=== PATIENT | male | born 1930 | race Caucasian/White ===

== ENCOUNTER 2017-01-05 16:10 | Emergency (ER) | payer MEDICARE ==
[~2017-01-05] VITALS: Ht 180.3 cm; Wt 85.7 kg
--- OUTSIDE RECORDS SUMMARY | ~2017-01-05 | XMS ---
Demographics + + + | Address | [address] | | | [place] [address] | + + + | Preferred Language | Unknown | + + + | Marital Status | Unknown | + + + | Jewish Affiliation | Unknown | + + + | Race | Unknown | + + + | Ethnic Group | Unknown | + + + Author + + + | Author | [facility] | + + + | Organization | [facility] | + + + | Address | 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 | 455007957 | | | cancer | | | | | | +---------+ + + +--------+ + + | Problem | HTN | | I10 | | Active | 85686365 | | | (hypertens | | | | | | | | ion) | | | | | | +---------+ + + +--------+ + + | Problem | Elevated | R73.01 | | | Active | 889990670 | | | fasting | | | | | | | | blood | | | | | | | | sugar | | | | | | +---------+ + + +--------+ + + | Problem | BPH | | N40.0 | | Active | 094843361 | | | (benign | | | | | | | | prostatic | | | | | | | | hyperplasi | | | | | | | | a) | | | | | | +---------+ + + +--------+ + + | Problem | Glaucoma | 365.9 | | | Active | 43822303 | +---------+ + + +--------+ + + | Problem | GERD | 530.81 | | | Active | 116133427 | | | (gastroeso | | | | | | | | phageal | | | | | | | | reflux | | | | | | | | disease) | | | | | | +---------+ + + +--------+ + + | Problem | Low | E55.9 | | | Active | 04839884 | | | vitamin D | | | | | | | | level | | | | | | +---------+ + + +--------+ + + | Problem | Chronic | | N18.3 | | Active | 259288796 | | | kidney | | | | | | | | disease, | | | | | | | | stage 3 | | | | | | +---------+ + + +--------+ + + | Problem | Esophagiti | K20.9 | | | Active | 75288649 | | | s | | | | | | +---------+ + + +--------+ + + | 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 | | | | | | | | | | | | | | | | ulceration | | | | | | +---------+ + + +--------+ + + | Problem | Chews | Z72.0 | | | Active | 61992303 | | | tobacco | | | | | | +---------+ + + +--------+ + + | Problem | Encounter | | Z13.89 | | Active | 146949019 | | | for | | | | | | | | screening | | | | | | | | for other | | | | | | | | disorder | | | | | | +---------+ + + +--------+ + + ALLERGIES Unknown Allergies SOCIAL HISTORY No smoking Hx information available PLAN OF CARE VITAL SIGNS MEDICATIONS Unknown Medications RESULTS No Results PROCEDURES No Known procedures IMMUNIZATIONS No Known Immunizations"
--- OUTSIDE RECORDS SUMMARY | ~2017-01-05 | XMS ---
Demographics + + + | Address | [address] | | | [place] [address] | + + + | Preferred Language | Unknown | + + + | Marital Status | Unknown | + + + | Pentecostal Affiliation | Unknown | + + + | Race | Unknown | + + + | Ethnic Group | Unknown | + + + Author + + + | Author | [facility] | + + + | Organization | [facility] | + + + | Address | [address] | | | [place] [address] | + + + | Phone | | + + + Care Team Providers + + + + | Care Parliamentary Archivist Name | Role | Phone | + + + + Unavailable | Unavailable | + + + + PROBLEMS +---------+ + + +--------+ + + | Type | Condition | ICD9-CM | [id number] | Onset | Condition | SNOMED | | | | Code | Code | Dates | Status | Code | +---------+ + + +--------+ + + | Problem | Hypertensi | 401.9 | | | Active | 28411107 | | | on | | | | | | +---------+ + + +--------+ + + | Problem | Skin | C44.90 | | | Active | 117425855 | | | cancer | | | | | | +---------+ + + +--------+ + + | Problem | HTN | | I10 | | Active | 34114881 | | | (hypertens | | | | | | | | ion) | | | | | | +---------+ + + +--------+ + + | Problem | Elevated | R73.01 | | | Active | 409012017 | | | fasting | | | | | | | | blood | | | | | | | | sugar | | | | | | +---------+ + + +--------+ + + | Problem | BPH | | N40.0 | | Active | 845996989 | | | (benign | | | | | | | | prostatic | | | | | | | | hyperplasi | | | | | | | | a) | | | | | | +---------+ + + +--------+ + + | Problem | Glaucoma | 365.9 | | | Active | 70819696 | +---------+ + + +--------+ + + | Problem | GERD | 530.81 | | | Active | 992375460 | | | (gastroeso | | | | | | | | phageal | | | | | | | | reflux | | | | | | | | disease) | | | | | | +---------+ + + +--------+ + + | Problem | Low | E55.9 | | | Active | 56284915 | | | vitamin D | | | | | | | | level | | | | | | +---------+ + + +--------+ + + | Problem | Chronic | | N18.3 | | Active | 670977719 | | | kidney | | | | | | | | disease, | | | | | | | | stage 3 | | | | | | +---------+ + + +--------+ + + | Problem | Esophagiti | K20.9 | | | Active | 23335599 | | | s | | | | | | +---------+ + + +--------+ + + | 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
--- OUTSIDE RECORDS SUMMARY | ~2017-01-05 | XMS ---
Demographics + + + | Address | [address] | | | [place] [address] | + + + | Preferred Language | Unknown | + + + | Marital Status | Unknown | + + + | Latter-Day Affiliation | Unknown | + + + | Race | Unknown | + + + | Ethnic Group | Unknown | + + + Author + + + | Author | [facility] | + + + | Organization | [facility] | + + + | Address | [address] | | | [place] [address] | + + + | Phone | | + + + Care Team Providers + + + + | Care Water Quality Technician Name | Role | Phone | + + + + Unavailable | Unavailable | + + + + PROBLEMS + + + + + + + + | Type | Condition | ICD9-CM | [id number] | Onset | Condition | SNOMED | | | | Code | Code | Dates | Status | Code | + + + + + + + + | Problem | Hypertensi | 401.9 | | | Active | 21363887 | | | on | | | | | | + + + + + + + + | Problem | Skin | C44.90 | | | Active | 122220916 | | | cancer | | | | | | + + + + + + + + | Problem | HTN | | I10 | | Active | 49501242 | | | (hypertens | | | | | | | | ion) | | | | | | + + + + + + + + | Problem | Low | E55.9 | | | Active | 97969123 | | | vitamin D | | | | | | | | level | | | | | | + + + + + + + + | Problem | Chronic | | N18.3 | | Active | 723214566 | | | kidney | | | | | | | | disease, | | | | | | | | stage 3 | | | | | | + + + + + + + + | Problem | Esophagiti | K20.9 | | | Active | 12843011 | | | s | | | | | | + + + + + + + + | 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 | | | Active | 18372887 | | | esophageal | | | | | | | | | | | | | | | | ulceration | | | | | | + + + + + + + + | Problem | Chews | Z72.0 | | | Active | 23154544 | | | tobacco | | | | | | + + + + + + + + | Problem | Encounter | | Z13.89 | | Active | 982399095 | | | for | | | | | | | | screening | | | | | | | | for other | | | | | | | | disorder | | | | | | + + + + + + + + | Problem | Elevated | R73.01 | | | Active | 876749107 | | | fasting | | | | | | | | blood | | | | | | | | sugar | | | | | | + + + + + + + + | Problem | BPH | | N40.0 | | Active | 211156272 | | | (benign | | | | | | | | prostatic | | | | | | | | hyperplasi | | | | | | | | a) | | | | | | + + + + + + + + | Assessment | Elevated | R73.9 | | 20 Apr, | Active | 88575104 | | | blood | | | 2017 | | | | | sugar | | | | | | + + + + + + + + | Problem | Glaucoma | 365.9 | | | Active | 45491375 | + + + + + + + + | Assessment | Low | E55.9 | | 20 Apr, | Active | 03040886 | | | vitamin D | | | 2017 | | | | | level | | | | | | + + + + + + + + | Problem | GERD | 530.81 | | | Active | 969528605 | | | (gastroeso | | | | | | | | phageal | | | | | | | | reflux | | | | | | | | disease) | | | | | | + + + + + + + + ALLERGIES + + + + +--------+ | Substance | Reaction | Event Type | Date | Status | + + + + +--------+ | Terazosin HCl | stomach upset | Drug Allergy | Jun, | Active | + + + + +--------+ | Tamsulosin HCl | stomach upset | Drug Allergy | Jun, | Active | + + + + +--------+ | Flomax | stomach upset | Drug Allergy | Jun, | Active | + + + + +--------+ SOCIAL HISTORY No smoking Hx information available PLAN OF CARE + +---------+ | Activity | Details | + +---------+ +---+ | | +---+ + + + | Pending Test | Renal Ultrasound | + + + | | 2 Months,Reason: | + + + VITAL SIGNS + + + + | Height | 5 ft 11.5 in in | 2016-07-02 | + + + + | Weight | 195 lbs | 2016-07-02 | + + + + | BMI | 26.82 kg/m2 | 2016-07-02 | + + + + | Temperature | 97.8 degrees Fahrenheit | 2016-07-02 | + + + + | Heart Rate | 65 /min | 2016-07-02 | + + + + | Blood pressure systolic | 135 mm Hg | 2016-07-02 | + + + + | Blood pressure diastolic | 80 mm Hg | 2016-07-02 | + + + + MEDICATIONS + + + + +--------+ + +--------+ | Medicati | Instruct | Dosage | Frequenc | Start | End Date | Duration | Status | | on | ions | | y | Date | | | | + + + + +--------+ + +--------+ | Hydrochl | | TAKE 1 | | | | | Active | | orothiaz | | TABLET | | | | | | | graciela 25MG | | EVERY 24 | | | | | | | | | HOURS | | | | | | | | | | | | | | | | | | DIRECTED | | | | | | + + + + +--------+ + +--------+ | Aspirin | Orally | 1 tablet | 24h | | | | Active | | 81 MG | Once a | | | | | | | | | day | | | | | | | + + + + +--------+ + +--------+ | Amlodipi | Orally | 2 tablet | 24h | | | | Active | | ne | Once a | | | | | | | | Besylate | day | | | | | | | | 5 MG | | | | | | | | + + + + +--------+ + +--------+ | Latanopr | | 1 drop | | | | | Active | | ost | | into | | | | | | | 0.005 % | | each eye | | | | | | + + + + +--------+ + +--------+ | Losartan | | 1 TABLET | | | | | Active | | | | ONCE A | | | | | | | Potassiu | | DAY | | | | | | | m 50 MG | | ORALLY | | | | | | | | | 30 | | | | | | | | | DAY(S) | | | | | | + + + + +--------+ + +--------+ | Tylenol | Orally | 2 tablet | | | | | Active | | Extra | night | as | | | | | | | Strength | time | needed | | | | | | | 500 MG | | | | | | | | + + + + +--------+ + +--------+ | Timolol | Ophthalm | 1 drop | 24h | | | | Active | | Hemihydr | ic Once | into | | | | | | | ate 0.5 | a day | affected | | | | | | | % | | eye | | | | | | + + + + +--------+ + +--------+ | Vitamin | Orally | | 24h | | | | Active | | D2 [id number] | Once a | | | | | | | | | day | | | | | | | + + + + +--------+ + +--------+ RESULTS No Results PROCEDURES + + + + + | Procedure | Date Ordered | Related Diagnosis | Body Site | + + + + + | Est Level III | July 02, 2016 | | | | Intermediate | | | | + + + + + | [facility] MED/CURRENT | July 02, 2016 | | | | MED MERGE | | | | + + + + + IMMUNIZATIONS No Known Immunizations"
--- OUTSIDE RECORDS SUMMARY | ~2017-01-05 | XMS ---
Demographics + + + | Address | [address] | | | [place] [address] | + + + | Preferred Language | Unknown | + + + | Marital Status | Unknown | + + + | Yarsanism Affiliation | Unknown | + + + | Race | Unknown | + + + | Ethnic Group | Unknown | + + + Author + + + | Author | [facility] | + + + | Organization | [facility] | + + + | Address | [address] | | | [place] [address] | + + + | Phone | | + + + Care Team Providers + + + + | Care Director Of Exhibits Name | Role | Phone | + + + + Unavailable | Unavailable | + + + + PROBLEMS +---------+ + + +--------+ + + | Type | Condition | ICD9-CM | [id number] | Onset | Condition | SNOMED | | | | Code | Code | Dates | Status | Code | +---------+ + + +--------+ + + | Problem | Hypertensi | 401.9 | | | Active | 95781160 | | | on | | | | | | +---------+ + + +--------+ + + | Problem | Skin | C44.90 | | | Active | 705734062 | | | cancer | | | | | | +---------+ + + +--------+ + + | Problem | HTN | | I10 | | Active | 46048014 | | | (hypertens | | | | | | | | ion) | | | | | | +---------+ + + +--------+ + + | Problem | Elevated | R73.01 | | | Active | 285218794 | | | fasting | | | | | | | | blood | | | | | | | | sugar | | | | | | +---------+ + + +--------+ + + | Problem | BPH | | N40.0 | | Active | 367547223 | | | (benign | | | | | | | | prostatic | | | | | | | | hyperplasi | | | | | | | | a) | | | | | | +---------+ + + +--------+ + + | Problem | Glaucoma | 365.9 | | | Active | 26066305 | +---------+ + + +--------+ + + | Problem | GERD | 530.81 | | | Active | 404406595 | | | (gastroeso | | | | | | | | phageal | | | | | | | | reflux | | | | | | | | disease) | | | | | | +---------+ + + +--------+ + + | Problem | Low | E55.9 | | | Active | 11841727 | | | vitamin D | | | | | | | | level | | | | | | +---------+ + + +--------+ + + | Problem | Chronic | | N18.3 | | Active | 776130043 | | | kidney | | | | | | | | disease, | | | | | | | | stage 3 | | | | | | +---------+ + + +--------+ + + | Problem | Esophagiti | K20.9 | | | Active | 88473771 | | | s | | | | | | +---------+ + + +--------+ + + | 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
--- OUTSIDE RECORDS SUMMARY | ~2017-01-05 | XMS ---
Demographics + + + | Address | [address] | | | [place] [address] | + + + | Preferred Language | Unknown | + + + | Marital Status | Unknown | + + + | Mormon Affiliation | Unknown | + + + | Race | Unknown | + + + | Ethnic Group | Unknown | + + + Author + + + | Author | [facility] | + + + | Organization | [facility] | + + + | Address | [address] | | | [place] [address] | + + + | Phone | | + + + Care Team Providers + + + + | Care Mobility Manager Name | Role | Phone | + + + + Unavailable | Unavailable | + + + + PROBLEMS +---------+ + + +--------+ + + | Type | Condition | ICD9-CM | [id number] | Onset | Condition | SNOMED | | | | Code | Code | Dates | Status | Code | +---------+ + + +--------+ + + | Problem | Hypertensi | 401.9 | | | Active | 39612070 | | | on | | | | | | +---------+ + + +--------+ + + | Problem | Skin | C44.90 | | | Active | 949840167 | | | cancer | | | | | | +---------+ + + +--------+ + + | Problem | HTN | | I10 | | Active | 62741921 | | | (hypertens | | | | | | | | ion) | | | | | | +---------+ + + +--------+ + + | Problem | Elevated | R73.01 | | | Active | 952030852 | | | fasting | | | | | | | | blood | | | | | | | | sugar | | | | | | +---------+ + + +--------+ + + | Problem | BPH | | N40.0 | | Active | 827604044 | | | (benign | | | | | | | | prostatic | | | | | | | | hyperplasi | | | | | | | | a) | | | | | | +---------+ + + +--------+ + + | Problem | Glaucoma | 365.9 | | | Active | 11823264 | +---------+ + + +--------+ + + | Problem | GERD | 530.81 | | | Active | 109832890 | | | (gastroeso | | | | | | | | phageal | | | | | | | | reflux | | | | | | | | disease) | | | | | | +---------+ + + +--------+ + + | Problem | Low | E55.9 | | | Active | 06778577 | | | vitamin D | | | | | | | | level | | | | | | +---------+ + + +--------+ + + | Problem | Chronic | | N18.3 | | Active | 619413914 | | | kidney | | | | | | | | disease, | | | | | | | | stage 3 | | | | | | +---------+ + + +--------+ + + | Problem | Esophagiti | K20.9 | | | Active | 63615140 | | | s | | | | | | +---------+ + + +--------+ + + | 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 | | | Active | 42297801 | | | esophageal | | | | | | | | | | | | | | | | ulceration | | | | | | +---------+ + + +--------+ + + | Problem | Chews | Z72.0 | | | Active | 52583772 | | | tobacco | | | | | | +---------+ + + +--------+ + + | Problem | Encounter | | Z13.89 | | Active | 109735115 | | | for | | | | | | | | screening | | | | | | | | for other | | | | | | | | disorder | | | | | | +---------+ + + +--------+ + + ALLERGIES + + + + +--------+ | Substance | Reaction | Event Type | Date | Status | + + + + +--------+ | Terazosin HCl | stomach upset | Drug Allergy | Sep, | Active | + + + + +--------+ | Tamsulosin HCl | stomach upset | Drug Allergy | Sep, | Active | + + + + +--------+ | Flomax | stomach upset | Drug Allergy | Sep, | Active | + + + + +--------+ SOCIAL HISTORY No smoking Hx information available PLAN OF CARE + +---------+ | Activity | Details | + +---------+ +---+ | | +---+ + + + | Follow Up | 2 Months Reason:null | + + + VITAL SIGNS + + + + | Height | 5 ft 11.5 in in | 2016-10-01 | + + + + | Weight | 184.2 lbs | 2016-10-01 | + + + + | BMI | 25.33 kg/m2 | 2016-10-01 | + + + + | Temperature | 97.8 degrees Fahrenheit | 2016-10-01 | + + + + | Heart Rate | 61 /min | 2016-10-01 | + + + + | Blood pressure systolic | 142 mm Hg | 2016-10-01 | + + + + | Blood pressure diastolic | 76 mm Hg | 2016-10-01 | + + + + MEDICATIONS + [...] + + + +--------+ + +--------+ | Protonix | Orally | 1 | 24h | | | | Active | | 20 MG | Once a | tablets | | | | | | | [...] | | | Active | | D2 30274 | Once a | | | | | | | | | day | | | | | | | + + + + +--------+ + +--------+ RESULTS + +--------+ + + | Name | Result | Date | Reference Range | + +--------+ + + | Basic Metabolic | | 2016-10-01 | | | Panel (8) | | | | + +--------+ + + | Calcium, Serum | | | | + +--------+ + + | Glucose, Serum | | | | + +--------+ + + | BUN | | | | + +--------+ + + | Potassium, Serum | | | | + +--------+ + + | Sodium, Serum | | | | + +--------+ + + | Chloride, Serum | | | | + +--------+ + + | Creatinine, Serum | | | | + +--------+ + + | Carbon Dioxide, | | | | | Total | | | | + +--------+ + + | BUN/Creatinine | | | | | Ratio | | | | + +--------+ + + | Hepatitis C | | 2016-10-01 | | | antibody | | | | + +--------+ + + | Vitamin D 25-OH | | 2016-10-01 | | + +--------+ + + | VITAMIN D 25-OH | | | | + +--------+ + + | CBC with | | 2016-10-01 | | | Differential Count | | | | + +--------+ + + PROCEDURES + + + + + | Procedure | Date Ordered | Related Diagnosis | Body Site | + + + + + | Office Visit, Est | October 01, 2016 | | | | Pt., Level 3 | | | | + + + + + | [facility] MED/CURRENT | October 01, 2016 | | | | MED MERGE | | | | + + + + + IMMUNIZATIONS No Known Immunizations"
--- OUTSIDE RECORDS SUMMARY | ~2017-01-05 | XMS ---
Demographics + + + | Address | [address] | | | [place] [address] | + + + | Preferred Language | Unknown | + + + | Marital Status | Unknown | + + + | Sikhism Affiliation | Unknown | + + + | Race | Unknown | + + + | Ethnic Group | Unknown | + + + Author + + + | Author | [facility] | + + + | Organization | [facility] | + + + | Address | [address] | | | [place] [address] | + + + | Phone | | + + + Care Team Providers + + + + | Care Chief Commercial Officer Name | Role | Phone | + + + + Unavailable | Unavailable | + + + + PROBLEMS +---------+ + + +--------+ + + | Type | Condition | ICD9-CM | [id number] | Onset | Condition | SNOMED | | | | Code | Code | Dates | Status | Code | +---------+ + + +--------+ + + | Problem | Hypertensi | 401.9 | | | Active | 18862938 | | | on | | | | | | +---------+ + + +--------+ + + | Problem | Skin | C44.90 | | | Active | 462889898 | | | cancer | | | | | | +---------+ + + +--------+ + + | Problem | HTN | | I10 | | Active | 67582996 | | | (hypertens | | | | | | | | ion) | | | | | | +---------+ + + +--------+ + + | Problem | Elevated | R73.01 | | | Active | 926863136 | | | fasting | | | | | | | | blood | | | | | | | | sugar | | | | | | +---------+ + + +--------+ + + | Problem | BPH | | N40.0 | | Active | 955981555 | | | (benign | | | | | | | | prostatic | | | | | | | | hyperplasi | | | | | | | | a) | | | | | | +---------+ + + +--------+ + + | Problem | Glaucoma | 365.9 | | | Active | 16696044 | +---------+ + + +--------+ + + | Problem | GERD | 530.81 | | | Active | 116930975 | | | (gastroeso | | | | | | | | phageal | | | | | | | | reflux | | | | | | | | disease) | | | | | | +---------+ + + +--------+ + + | Problem | Low | E55.9 | | | Active | 03223148 | | | vitamin D | | | | | | | | level | | | | | | +---------+ + + +--------+ + + | Problem | Chronic | | N18.3 | | Active | 524797911 | | | kidney | | | | | | | | disease, | | | | | | | | stage 3 | | | | | | +---------+ + + +--------+ + + | Problem | Esophagiti | K20.9 | | | Active | 56363571 | | | s | | | | | | +---------+ + + +--------+ + + | 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
[~2017-01-05 16:10] MED LIST: ACID CONTROL150 MG PO; ADULT LOW DOSE81 MG PO; CENTRUM COMPLE1 EACH PO; HYDROCHLOROTHIA25 MG PO; NORVASC5 MG PO; POTASSIUM CHLO10 MEQ PO; PROMETHAZINE-COD5 ML PO
[2017-01-05] MEDS ORDERED: COZAAR25 MG PO (16:27)
[2017-01-05] MEDS ORDERED: METHYLPREDNISOLO4 M1 PO (16:52)
== END 2017-01-05 16:58 | disposition home or self-care (01) ==
LOC: ED 16:10
DX: M26.621 Arthralgia of right temporomandibular joint (principal); I10 Essential (primary) hypertension; Z87.891 Personal history of nicotine dependence; Z88.1 Allergy status to other antibiotic agents; Z79.82 Long term (current) use of aspirin; Z79.899 Other long term (current) drug therapy
CPT/HCPCS: 99283

== ENCOUNTER 2017-12-06 10:52 | Emergency (ER) | payer MEDICARE ==
[~2017-12-06] VITALS: Ht 180.3 cm; Wt 85.7 kg
--- OUTSIDE RECORDS SUMMARY | ~2017-12-06 | XMS | Clinical Summary ---
Demographics + + + | Address | [address] [facility] | | | [place] [address] | + + + | Home Phone | | + + + | Preferred Language | Unknown | + + + | Marital Status | | + + + | Anglican Affiliation | 1069 | + + + | Race | Unknown | + + + | Ethnic Group | Unknown | + + + Author + + + | Author | [facility] | + + + | Organization | [facility] | + + + | Address | Unknown | + + + | Phone | Unavailable | + + + Support + + + + + | Name | Relationship | Address | Phone | + + + + + | Montse Jain | ECON | [address] [facility] | | | | | [place] | | | | | [address] | | + + + + + Care Team Providers + +------+ + | Care Polysomnography Tech Name | Role | Phone | + [...] + + + Current Medications + + +-------+---------+------+------+-------+ | Prescription | Sig. | Disp. | Refills | Star | End | Statu | | | | | | t | Date | s | | | | | | Date | | | + + +-------+---------+------+------+-------+ | aspirin 81 MG | Take 81 mg by mouth | | | | | Activ | | tablet | daily. 1/4 of 81 MG | | | | | e | | | tablet daily | | | | | | + + +-------+---------+------+------+-------+ | amLODIPine | Take 10 mg by mouth | | | | | Activ | | (NORVASC) 5 MG | daily. | | | | | e | | tablet | | | | | | | + + +-------+---------+------+------+-------+ | timolol (TIMOPTIC) | 1 drop daily. | | | | | Activ | | 0.5 % ophthalmic | | | | | | e | | solution | | | | | | | + + +-------+---------+------+------+-------+ | losartan (COZAAR) | Take 50 mg by mouth | | | | | Activ | | 50 MG tablet | daily. | | | | | e | + + +-------+---------+------+------+-------+ | | Take 25 mg by mouth | | | | | Activ | | hydrochlorothiazide | daily. | | | | | e | | (HYDRODIURIL) 25 MG | | | | | | | | tablet | | | | | | | + + +-------+---------+------+------+-------+ | acetaminophen | Take 500 mg by mouth | | | | | Activ | | (TYLENOL) 500 MG | nightly as needed | | | | | e | | tablet | for Pain. | | | | | | + + +-------+---------+------+------+-------+ | ergocalciferol | Take 50,000 Units by | | | | | Activ | | (DRISDOL) [address]79 | mouth daily. | | | | | e | | units capsule | | | | | | | + + +-------+---------+------+------+-------+ | pantoprazole | Take 20 mg by mouth | | | | | Activ | | (PROTONIX) 20 MG | daily. D/C's over a | | | | | e | | tablet | year ago. | | | | | | + + +-------+---------+------+------+-------+ | Multiple | Take 1 tablet by | | | | | Activ | | Vitamins-Minerals | mouth daily. | | | | | e | | (MULTIVITAMIN WITH | | | | | | | | MINERALS) tablet | | | | | | | + + +-------+---------+------+------+-------+ | ranitidine | 150 mg as needed. | | | 09/13 | | Activ | | (ZANTAC) 150 MG | | | | 04/03 | | e | | capsule | | | | 17 | | | + + +-------+---------+------+------+-------+ | latanoprost | | | | 03 | | Activ | | (XALATAN) 0.005 % | | | | 09/01 | | e | | ophthalmic solution | | | | 18 | | | + + +-------+---------+------+------+-------+ Active Problems + + + | Problem [...] | symptoms | | + + + Encounters +--------+ + + + + | Date | Type | Specialty | Care Team | Description | +--------+ + + + + | 12/02/ | Telephone | | Josefa Torres MA | | | 2017 | | | | | +--------+ + + + + from Last 3 Months Family History + + +------+ + | [...] + + + | Blood Pressure | 134/72 | 06/16/2017 9:58 AM PDT | + + + + | Pulse | 75 | 06/16/2017 9:58 AM PDT | + + + + | Temperature | 36.4 C (97.5 F) | 06/16/2017 9:58 AM PDT | + + + + | Respiratory Rate | - | - | + + + + | Oxygen Saturation | 97% | 06/16/2017 9:58 AM PDT | + + + + | Inhaled Oxygen | - | - | | Concentration | | | + + + + | Weight | 88.6 kg (195 lb 4.8 | 06/16/2017 9:58 AM PDT | | | oz) | | + + + + | Height | 180.3 cm (5' 11") | 06/16/2017 2:40 PM PDT | + + + + | Body Mass Index | 36.9 | 06/16/2017 9:58 AM PDT | + + + + Plan of Treatment +--------+---------+ + + + | Date | Type | Specialty | Care Team | Description | +--------+---------+ + + + | 12/10/ | Office | | Tato Urrutia, | | | 2017 | Visit | | [facility] | | | | | | [address] | | | | | | [place] [address] | | | | | | [phone] | | | | | | | | +--------+---------+ + + + + + + + + | Health [...] | | | | | (#1) | 8 | | | + + + + [...] +--------+ +--------+ + + | [place] - | [phone] | Medica | [phone] | [address] [address] [place] | | HEALTHCARE | [place] | | re | [phone] | [place] [address] | | | | | | | [...] | Self | [birth year] | Home: | [address] | | | al/Fam | | 1931 | [phone] | [place] | | | [place] | | | [phone] | [phone] | + +--------+ +--------+ + +
--- OUTSIDE RECORDS SUMMARY | ~2017-12-06 | XMS | Encounter Summary ---
Demographics + + + | Address | [address] [facility] [address] | | | [place] [address] | + + + | Home Phone | | + + + | Preferred Language | Unknown | + + + | Marital Status | | + + + | Alevism Affiliation | 1069 | + + + | Race | Unknown | + + + | Ethnic Group | Unknown | + + + Author + + + | Author | [facility] | + + + | Organization | [facility] | + + + | Address | Unknown | + + + | Phone | Unavailable | + + + Support + + + + + | Name | Relationship | Address | Phone | + + + + + | Montse Jain | ECON | [address] [facility] | | | | | [place] | | | | | [address] | | + + + + + Care Team Providers + +------+ + | Care Administrative Receptionist Name | Role | Phone | + +------+ + | Kwabena Dimas MD | PCP | | + +------+ + Encounter Details +--------+ + + + + | Date | Type | Department | Care Team | Description | +--------+ + + + + | 12/02/ | Telephone | [facility] | Josefa Torres [place] | | | 2017 | | [address] | | | | | | [address] | | | | | | [place] [address] | | | | | | [phone] | | | +--------+ + + + + Social History + +-------+ +--------+ [...] on file | | + + + as of this encounter Plan of Treatment +--------+---------+ + + + | Date | Type | Specialty | Care Team | Description | +--------+---------+ + + + | 12/10/ | Office | Nephrology | Tato Urrutia, | | | 2017 | Visit | | [facility] | | | | | | [address] | | | | | | [place] [address] | | | | | | [phone] | | | | | | | | +--------+---------+ + + + as of this encounter Visit Diagnoses Not on filein this encounter"
--- OUTSIDE RECORDS SUMMARY | ~2017-12-06 | XMS | Clinical Summary ---
Demographics + + + | Address | [address] [facility] | | | [place] [address] | + + + | Home Phone | | + + + | Preferred Language | Unknown | + + + | Marital Status | | + + + | Hinduism Affiliation | 1069 | + + + | Race | Unknown | + + + | Ethnic Group | Unknown | + + + Author + + + | Author | [facility] | + + + | Organization | [facility] | + + + | Address | Unknown | + + + | Phone | Unavailable | + + + Support + + + + + | Name | Relationship | Address | Phone | + + + + + | Montse Jain | ECON | [address] [facility] | | | | | [place] | | | | | [address] | | + + + + + Care Team Providers + +------+ + | Care Industrial Specialist Name | Role | Phone | + [...] | | | Activ | | (DRISDOL) [address] | mouth daily. | | | | [...] [address] | | | | | | [place] [address] | | | | | | [phone] | | | | | | | [...] [place] | [place] - | [phone] | Medica | [phone] | [address] [address] [place] | | HEALTHCARE | [place] | | re | [address] | [place] [address] | | | | | | | [...] | Self | [birth year] | Home: | [address] | | | al/Fam | | 1931 | [phone] | [place] | | | [place] | | | [phone] | [phone] | + +--------+ +--------+ + +
--- OUTSIDE RECORDS SUMMARY | ~2017-12-06 | XMS | Encounter Summary ---
Demographics + + + | Address | [address] [facility] | | | [place] [address] | + + + | Home Phone | | + + + | Preferred Language | Unknown | + + + | Marital Status | | + + + | Hindu Affiliation | 1069 | + + + | Race | Unknown | + + + | Ethnic Group | Unknown | + + + Author + + + | Author | [facility] | + + + | Organization | [facility] | + + + | Address | Unknown | + + + | Phone | Unavailable | + + + Support + + + + + | Name | Relationship | Address | Phone | + + + + + | Montse Jain | ECON | [address] [facility] | | | | | [place] | | | | | [address] | | + + + + + Care Team Providers + +------+ + | Care Instrument Sterilizer Name | Role | Phone | + +------+ + | Kwabena Dimas MD | PCP | | + +------+ + Encounter Details +--------+ + + + + | Date | Type | Department | Care Team | Description | +--------+ + + + + | 12/02/ | Telephone | [facility] | Josefa Torres MA | | | 2017 | | [address] | | | | | | [address] | | | | | | [place] [address] | | | | | | [phone] | | | +--------+ + + + [...] [address] | | | | | | [place] [address] | | | | | | [phone] | | | | | | | | +--------+---------+ + + + as of this encounter Visit Diagnoses Not on filein this encounter"
[~2017-12-06 10:52] MED LIST changes: +COZAAR25 MG PO; +METHYLPREDNISOLO4 M1 PO
== END 2017-12-06 12:50 | disposition home or self-care (01) ==
LOC: ED 10:52
DX: S69.91XA Unspecified injury of right wrist, hand and finger(s), initial encounter (principal); I10 Essential (primary) hypertension; Z87.891 Personal history of nicotine dependence; Z88.8 Allergy status to other drugs, medicaments and biological substances; Z79.899 Other long term (current) drug therapy; Z79.82 Long term (current) use of aspirin; W22.8XXA Striking against or struck by other objects, initial encounter
CPT/HCPCS: 73110; 99283

== ENCOUNTER 2019-01-28 17:10 | Emergency (ER) | payer MEDICARE ==
[~2019-01-28] VITALS: Ht 180.3 cm; Wt 87.1 kg
--- OUTSIDE RECORDS SUMMARY | ~2019-01-28 | XMS | Clinical Summary ---
Demographics + + + | Address | [address] [facility] | | | [place] [address] | + + + | Home Phone | | + + + | Preferred Language | Unknown | + + + | Marital Status | | + + + | Jewish Affiliation | 1069 | + + + | Race | Unknown | + + + | Ethnic Group | Unknown | + + + Author + + + | Author | [facility] (Historical as of | | | 10-29-18) | + + + | Organization | [facility] (Historical as of | | | 10-29-18) | + + + | Address | Unknown | + + + | Phone | Unavailable | + + + Support + + + + + | Name | Relationship | Address | Phone | + + + + + | Montse Jain | ECON | [address] [facility] | | | | | [place] | | | | | [address] | | + + + + + Care Team Providers + +------+ + | Care Contract Processor Name | Role | Phone | + +------+ + | Kwabena Dimas MD | PP | | + +------+ + Allergies + + + + + + | Active Allergy | Reactions | Severity | Noted | Comments | | | | | Date | | + + + + + + | Tamsulosin Hcl | Other (See Comments) | Medium | 09/01/19 | Stomache upset. | | | | | 17 | | + + + + + + | Terazosin Hcl | Other (See Comments) | Medium | 09/01/19 | Stomache upset. | | | | | 17 | | + + + + + + Current Medications + + +--------+---------+------+------+-------+ | Prescription | Sig. | Disp. | Refills | Star | End | Statu | | | | | | t | Date | s | | | | | | Date | | | + + +--------+---------+------+------+-------+ | aspirin 81 MG | Take 81 mg by mouth | | | | | Activ | | tablet | daily. 03/18 of 81 MG | | | | | e | | | tablet daily | | | | | | + + +--------+---------+------+------+-------+ | amLODIPine | Take 10 mg by mouth | | | | | Activ | | (NORVASC) 5 MG | 2 (two) times daily. | | | | | e | | tablet | | | | | | | + + +--------+---------+------+------+-------+ | timolol (TIMOPTIC) | 1 drop daily. | | | | | Activ | | 0.5 % ophthalmic | | | | | | e | | solution | | | | | | | + + +--------+---------+------+------+-------+ | losartan (COZAAR) | Take 50 mg by mouth | | | | | Activ | | 50 MG tablet | daily. | | | | | e | + + +--------+---------+------+------+-------+ | | Take 12.5 mg by | | | | | Activ | | hydrochlorothiazide | mouth daily. | | | | | e | | (HYDRODIURIL) 25 MG | | | | | | | | tablet | | | | | | | + + +--------+---------+------+------+-------+ | acetaminophen | Take 500 mg by mouth | | | | | Activ | | (TYLENOL) 500 MG | nightly as needed | | | | | e | | tablet | for Pain. | | | | | | + + +--------+---------+------+------+-------+ | pantoprazole | Take 20 mg by mouth | | | | | Activ | | (PROTONIX) 20 MG | daily. D/C's over a | | | | | e | | tablet | year ago. | | | | | | + + +--------+---------+------+------+-------+ | Multiple | Take 1 tablet by | | | | | Activ | | Vitamins-Minerals | mouth daily. | | | | | e | | (MULTIVITAMIN WITH | | | | | | | | MINERALS) tablet | | | | | | | + + +--------+---------+------+------+-------+ | ranitidine | 150 mg as needed. | | | 07/2 | | Activ | | (ZANTAC) 150 MG | | | | 1/20 | | e | | capsule | | | | 17 | | | + + +--------+---------+------+------+-------+ | latanoprost | | | | 03/1 | | Activ | | (XALATAN) 0.005 % | | | | 6/20 | | e | | ophthalmic solution | | | | 18 | | | + + +--------+---------+------+------+-------+ | allopurinol | Take 1 tablet by | 90 | 3 | 04/0 | | Activ | | (ZYLOPRIM) 100 MG | mouth daily. 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 | 09/11/2016 | | symptoms | | + + + Family History + + +------+ + | Medical History | Relation | Name | Comments | + + +------+ + | Heart disease | Father | | | + + +------+ + | Tuberculosis | Father | | | + + +------+ + | Tuberculosis | Mother | | | + + +------+ + | Kidney disease | Neg Hx | | | + + +------+ + + +------+ + + | Relation | Name | Status | Comments | + +------+ + + | Father | | | | | | | (Age | | | | | 68) | | + +------+ + + | Mother | | | | | | | (Age | | | | | 42) | | + +------+ + + Social History + +-------+ +--------+ + | Tobacco Use | Types | Packs/Day | Years | Date | | | | | Used | | + +-------+ +--------+ + | Former Smoker | | | | Started: 09/11/1981 | + +-------+ +--------+ + + +---+---+---+ | Smokeless Tobacco: | | | | | Current User | | | | + +---+---+---+ + + +---------+ + | Alcohol Use | Drinks/We | oz/Week | Comments | | | ek | | | + + +---------+ + | Yes | 0 | 0.0 | occasionaly | | | Standard | | | | | drinks or | | | | | | | | | | equivalen | | | | | t | | | + + +---------+ + + + + | Sex Assigned at | Date Recorded | | | | + + + | Not on file | | + + + Last Filed Vital Signs + + + + | Vital Sign | Reading | Time Taken | + + + + | Blood Pressure | 130/72 | 06/15/2018 9:43 AM PDT | + + + + | Pulse | 73 | 06/15/2018 9:43 AM PDT | + + + + | Temperature | 36.4 C (97.5 F) | 06/16/2017 9:58 AM PDT | + + + + | Respiratory Rate | - | - | + + + + | Oxygen Saturation | 97% | 06/15/2018 9:43 AM PDT | + + + + | Inhaled Oxygen | - | - | | Concentration | | | + + + + | Weight | 89.5 kg (197 lb 4.8 | 06/15/2018 9:43 AM PDT | | | oz) | | + + + + | Height | 154.9 cm (5' 1") | 06/15/2018 9:43 AM PDT | + + + + | Body Mass Index | 37.28 | 06/15/2018 9:43 AM PDT | + + + + Plan of Treatment + + + + + | Health Maintenance | Due Date | Last Done | Comments | + + + + + | Vaccine: | | | | | Dtap/Tdap/Td (1 - | 2 | | | | Tdap) | | | | + + + + + | Vaccine: Zoster (1 | | | | | of 2) | 3 | | | + + + + + | Vaccine: | | | | | Pneumococcal 65+ | 8 | | | | Low/Medium Risk (1 | | | | | of 2 - PCV13) | | | | + + + + + | Vaccine: Influenza | | | | | (#1) | 9 | | | + + + + + Results Not on filefrom Last 3 Months Insurance + +--------+ +--------+ + + | Payer | Benefi | Subscriber | Type | Phone | Address | | | t Plan | ID | | | | | | / | | | | | | | Group | | | | | + +--------+ +--------+ + + | [place] - [place] | [place] - | [id number] | Medica | [phone] [address] [address] [place] | | HEALTHCARE | [place] | | re | [phone] | [place] [address] | | | | | | | | | | HEALTH | | | | | | | CARE | | | | | + +--------+ +--------+ + + | MEDICARE | MEDICA | [id number] | | | [address] | | | RE | | | | [place] [phone] | | | IP-OP | | | | | + +--------+ +--------+ + + + +--------+ +--------+ + + | Guarantor Name | Accoun | Relation to | Date | Phone | Billing Address | | | t Type | Patient | of | | | | | | | | | | + +--------+ +--------+ + + | PIETRO JAIN | Person | Self [birth year] | Home: | [address] | | | al/Fam | | 1931 | [phone] | [address] [place] | | | [place] | | | [phone] | [phone] | + +--------+ +--------+ + +
--- OUTSIDE RECORDS SUMMARY | ~2019-01-28 | XMS | Encounter Summary ---
Demographics + + + | Address | [address] [facility] | | | [place] [address] | + + + | Home Phone | | + + + | Preferred Language | Unknown | + + + | Marital Status | | + + + | Christian Affiliation | 1069 | + + + | Race | Unknown | + + + | Ethnic Group | Unknown | + + + Author + + + | Author | [facility] | | | and [place] | + + + | Organization | [facility] | | | and [place] | + + + | Address | Unknown | + + + | Phone | Unavailable | + + + Support + + + + + | Name | Relationship | Address | Phone | + + + + + | Montse Jain | ECON | [address] [facility] | | | | | [place] | | | | | [address] | | + + + + + Care Team Providers + +------+ + | Care Sales Representative Wire Rope Name | Role | Phone | + +------+ + | Kwabena Dimas MD PCP | | + +------+ + Encounter Details +--------+ + + + + | Date | Type | Department | Care Team | Description | +--------+ + + + + | 10/01/ | Orders Only | [facility] | Conversion | | | 2016 | | [facility] | Transaction, | | | | | [address] | Provider Unknown | | | | | [address] [place] | | | | | | [address] | (Fax) | | | | | [phone] | | | +--------+ + + + + Social History + +-------+ +--------+------+ | Tobacco Use | Types | Packs/Day | Years | Date | | | | | Used | | + +-------+ +--------+------+ | Never Assessed | | | | | + +-------+ +--------+------+ + + + | Sex Assigned at | Date Recorded | | | | + + + | Not on file | | + + + + + + + | Job Start Date | Occupation | Industry | + + + + | Not on file | Not on file | Not on file | + + + + + + + + | Travel History | Travel Start | Travel End | + + + + + + | No recent travel history available. | + + documented as of this encounter Plan of Treatment Not on filedocumented as of this encounter Procedures + +--------+ + + + | Procedure Name | Priori | Date/Time | Associated Diagnosis | Comments | | | ty | | | | + +--------+ + + + | EXTERNAL LAB: CBC | Routin | 10/01/2016 | | Results for this | | | e | 9:44 AM | | procedure are in the | | | | PDT | | results section. | + +--------+ + + + | VITAMIN D, | Routin | 10/01/2016 | | Results for this | | DEFICIENCY SCREEN | e | 9:44 AM | | procedure are in the | | (25-HYDROXY) | | PDT | | results section. | + +--------+ + + + | BASIC METABOLIC | Routin | 10/01/2016 | | Results for this | | PANEL | e | 9:44 AM | | procedure are in the | | | | PDT | | results section. | + +--------+ + + + documented in this encounter Results Vitamin D, Deficiency Screen (25-Hydroxy) (10/01/2016 9:44 AM PDT) + +-------+ + + + | Component | Value | Ref Range | Performed | Pathologist | | | | | At | Signature | + +-------+ + + + | Vit D, | 45 | 30 - 100 | EXTERNAL | | | 25-Hydroxy | | | LAB | | + +-------+ + + + + + | Specimen | + + | Blood specimen | | (specimen) | + + + +---------+ + + | Performing | Address | City/State/Zipcode | Phone Number | | Organization | | | | + +---------+ + + | EXTERNAL LAB | | | | + +---------+ + + External Lab: CBC (10/01/2016 9:44 AM PDT) + +-------+ + + + | Component | Value | Ref Range | Performed | Pathologist | | | | | At | Signature | + +-------+ + + + | WBC | 5.7 | 4.5 - 11.0 10 | EXTERNAL | | | | | | LAB | | + +-------+ + + + | RED CELL | 4.76 | 4.3 - 5.7 10 | EXTERNAL | | | COUNT | | | LAB | | + +-------+ + + + | Hgb | 14.9 | 13.5 - 18.0 | EXTERNAL | | | | | g/dL | LAB | | + +-------+ + + + | Hematocrit, | 42.3 | 41 - 50 % | EXTERNAL | | | POC | | | LAB | | + +-------+ + + + | MCV | 88.9 | 81 - 99 fL | EXTERNAL | | | | | | LAB | | + +-------+ + + + | MCH | 31 | 27 - 33 pg | EXTERNAL | | | | | | LAB | | + +-------+ + + + | MCHC | 35 | 30 - 36 g/dL | EXTERNAL | | | | | | LAB | | + +-------+ + + + | Platelet | 243 | 140 - 440 K/ L | EXTERNAL | | | Count | | | LAB | | | Plasma | | | | | + +-------+ + + + | RDW-CV | 13.7 | 10.5 - 15.0 % | EXTERNAL | | | | | | LAB | | + +-------+ + + + | MPV | | fL | EXTERNAL | | | | | | LAB | | + +-------+ + + + | Differentia | | | EXTERNAL | | | l Type | | | LAB | | + +-------+ + + + | % Segmented | | % | EXTERNAL | | | | | | LAB | | | Neutrophils | | | | | + +-------+ + + + | % | | % | EXTERNAL | | | Lymphocytes | | | LAB | | + +-------+ + + + | % Monocytes | | % | EXTERNAL | | | | | | LAB | | + +-------+ + + + | % | | % | EXTERNAL | | | Eosinophils | | | LAB | | + +-------+ + + + | % Basophils | | % | EXTERNAL | | | | | | LAB | | + +-------+ + + + | Absolute | | / L | EXTERNAL | | | Segmented | | | LAB | | | Neutrophils | | | | | + +-------+ + + + | Absolute | | / L | EXTERNAL | | | Lymphocytes | | | LAB | | + +-------+ + + + | Absolute | | / L | EXTERNAL | | | Monocytes | | | LAB | | + +-------+ + + + | Absolute | | / L | EXTERNAL | | | Eosinophils | | | LAB | | + +-------+ + + + | Absolute | | / L | EXTERNAL | | | Basophils | | | LAB | | + +-------+ + + + + + | Specimen | + + | Blood specimen | | (specimen) | + + + +---------+ + + | Performing | Address | City/State/Zipcode | Phone Number | | Organization | | | | + +---------+ + + | EXTERNAL LAB | | | | + +---------+ + + Basic Metabolic Panel (10/01/2016 9:44 AM PDT) + + + + + + | Component | Value | Ref Range | Performed | Pathologist | | | | | At | Signature | + + + + + + | Glucose, | 105 (A) | 70 - 100 mg/dL | EXTERNAL | | | Fasting | | | LAB | | + + + + + + | BUN | 22 | 6 - 23 mg/dL | EXTERNAL | | | | | | LAB | | + + + + + + | Creatinine | 1.16 (A) | 0.70 - 1.11 | EXTERNAL | | | | | mg/dL | LAB | | + + + + + + | BUN/Creatin | 19.0 | 6.0 - 28.6 | EXTERNAL | | | ine Ratio | | | LAB | | + + + + + + | Calcium | 9.1 | 8.4 - 10.2 | EXTERNAL | | | | | mg/dL | LAB | | + + + + + + | Na | 138 | 132 - 143 | EXTERNAL | | | | | mmol/L | LAB | | + + + + + + | K | 3.7 | 3.6 - 5.1 | EXTERNAL | | | | | mmol/L | LAB | | + + + + + + | Cl | 103 | 95 - 112 mmol/L | EXTERNAL | | | | | | LAB | | + + + + + + | CO2 | 21 | 19 - 31 mmol/L | EXTERNAL | | | | | | LAB | | + + + + + + | Anion Gap | 17.7 | 7 - 21 mmol/L | EXTERNAL | | | | | | LAB | | + + + + + + | Estimated | 60 | mg/dL | EXTERNAL | | | GFR | | | LAB | | + + + + + + + + | Specimen | + + | Blood specimen | | (specimen) | + + + +---------+ + + | Performing | Address | City/State/Zipcode | Phone Number | | Organization | | | | + +---------+ + + | EXTERNAL LAB | | | | + +---------+ + + documented in this encounter Visit Diagnoses Not on filedocumented in this encounter"
--- OUTSIDE RECORDS SUMMARY | ~2019-01-28 | XMS | Encounter Summary ---
Demographics + + + | Address | [address] [facility] [address] | | | [place] [address] | + + + | Home Phone | | + + + | Preferred Language | Unknown | + + + | Marital Status | | + + + | Gnosticist Affiliation | 1069 | + + + | Race | Unknown | + + + | Ethnic Group | Unknown | + + + Author + + + | Author | [facility] | | | and [place] | + + + | Organization | [facility] | | | and [place] | + + + | Address | Unknown | + + + | Phone | Unavailable | + + + Support + + + + + | Name | Relationship | Address | Phone | + + + + + | Montse Jain | ECON | [address] [facility] | | | | | [place] | | | | | [address] | | + + + + + Care Team Providers + +------+ + | [employer] Name | Role | Phone | + +------+ + | Kwabena Dimas MD PCP | | + +------+ + Encounter Details +--------+ + + + + | Date | Type | Department | Care Team | Description | +--------+ + + + + | 08/31/ | Orders Only | [facility] | Conversion | | | 2017 | | CONVERSION DEP [address] | Transaction, | | | | | [address] | Provider Unknown | | | | | [facility] [place] | [phone] | | | | | [phone] | (Fax) | | | | | [phone] | | | +--------+ + + + [...] Not on filedocumented as of this encounter Visit Diagnoses Not on filedocumented in this encounter"
--- OUTSIDE RECORDS SUMMARY | ~2019-01-28 | XMS | Encounter Summary ---
Demographics + + + | Address | [address] | | | [place] [address] | + + + | Home Phone | | + + + | Preferred Language | Unknown | + + + | Marital Status | | + + + | Latter-Day Affiliation | 1069 | + + + | Race | Unknown | + + + | Ethnic Group | Unknown | + + + Author + + + | Author | [facility] | | | and [place] | + + + | Organization | [facility] | | | and [place] | + + + | Address | Unknown | + + + | Phone | Unavailable | + + + Support + + + + + | Name | Relationship | Address | Phone | + + + + + | Montse Jain | ECON | [address] | | | | | [place] | | | | | [address] | | + + + + + Care Team Providers + +------+ + | Care Automobile Spring Repairer Name | Role | Phone | + +------+ + | Kwabena Dimas MD PCP | | + +------+ + Encounter Details +--------+ + + + + | Date | Type | Department | Care Team | Description | +--------+ + + + + | 12/06/ | Orders Only | [facility] | Conversion | | | 2017 | | NE[facility]OLOGY [facility] | Transaction, | | | | | [address] | Provider Unknown | | | | | [address] [place] | | | | | | [phone] | (Fax) | | | | | [phone] | | | +--------+ + + + [...] | + +--------+ + + + | URINALYSIS, | Routin | 12/06/2017 | | Results for this | | MICROSCOPIC ONLY | e | 12:00 AM | | procedure are in the | | | | PDT | | results section. | + +--------+ + + + | MICROALBUMIN/CREATIN | Routin | 12/06/2017 | | Results for this | | INE RATIO, URINE | e | 12:00 AM | | procedure are in the | | TEST | | PDT | | results section. | + +--------+ + + + | CBC NO DIFFERENTIAL | Routin | 12/06/2017 | | Results for this | | | e | 12:00 AM | | procedure are in the | | | | PDT | | results section. | + +--------+ + + + | URIC ACID | Routin | 12/06/2017 | | Results for this | | | e | 12:00 AM | | procedure are in the | | | | PDT | | results section. | + +--------+ + + + | MAGNESIUM | Routin | 12/06/2017 | | Results for this | | | e | 12:00 AM | | procedure are in the | | | | PDT | | results section. | + +--------+ + + + | RENAL FUNCTION PANEL | Routin | 12/06/2017 | | Results for this | | | e | 12:00 AM | | procedure are in the | | | | PDT | | results section. | + +--------+ + + + documented in this encounter Results CBC no Differential (12/06/2017 12:00 AM PDT) + +-------+ + + + | Component | Value | Ref Range | Performed | Pathologist | | | | | At | Signature | + +-------+ + + + | WBC | 7.9 | 4.5 - 11 10 | EXTERNAL | | | | | | LAB | | + +-------+ + + + | RED CELL | 4.65 | 4.3 - 5.7 10 | EXTERNAL | | | COUNT | | | LAB | | + +-------+ + + + | Hgb | 14.7 | 13.5 - 18 g/dL | EXTERNAL | | | | | | LAB | | + +-------+ + + + | Hematocrit, | 42.4 | 41 - 50 % | EXTERNAL | | | POC | | | LAB | | + +-------+ + + + | MCV | 91.3 | 81 - 99 fL | EXTERNAL | | | | | | LAB | | + +-------+ + + + | MCH | 32 | 27 - 33 pg | EXTERNAL | | | | | | LAB | | + +-------+ + + + | MCHC | 35 | 30 - 36 g/dL | EXTERNAL | | | | | | LAB | | + +-------+ + + + | RDW-CV | 13.7 | 10.5 - 15 % | EXTERNAL | | | | | | LAB | | + +-------+ + + + | Platelet | 268 | 140 - 440 K/ L | EXTERNAL | | | Count | | | LAB | | | Plasma | | | | | + +-------+ + + + | MPV | | fL | EXTERNAL | | | | | | LAB | | + +-------+ + + + + + | Specimen | + + | | + + + +---------+ + + | Performing | Address | City/State/Zipcode | Phone Number | | Organization | | | | + +---------+ + + | EXTERNAL LAB | | | | + +---------+ + + Microalbumin/Creatinine Ratio, Urine (12/06/2017 12:00 AM PDT) + +-------+ + + + | Component | Value | Ref Range | Performed | Pathologist | | | | | At | Signature | + +-------+ + + + | ALBUMIN/CRE | 14.6 | 0 - 30 | EXTERNAL | | | ATININE | | | LAB | | | RATIO.URINE | | | | | | .ORD.MG/G | | | | | | (JOHNY) | | | | | | | | | | | | | | | | | + +-------+ + + + + + | Specimen | + + | Urine specimen | | (specimen) | + + + +---------+ + + | Performing | Address | City/State/Zipcode | Phone Number | | Organization | | | | + +---------+ + + | EXTERNAL LAB | | | | + +---------+ + + Urinalysis, Microscopic Only (12/06/2017 12:00 AM PDT) + + + + + + | Component | Value | Ref Range | Performed | Pathologist | | | | | At | Signature | + + + + + + | Color | Yellow | | EXTERNAL | | | | | | LAB | | + + + + + + | Clarity | Clear | | EXTERNAL | | | | | | LAB | | + + + + + + | Specific | 1.015 | 1.005 - 1.030 | EXTERNAL | | | [place] | | | LAB | | + + + + + + | Leukocyte | Negative | | EXTERNAL | | | Esterase, | | | LAB | | | Urine | | | | | + + + + + + | Nitrite, | Negative | | EXTERNAL | | | Urine | | | LAB | | + + + + + + | Urobilinoge | Normal | | EXTERNAL | | | n, Urine | | | LAB | | + + + + + + | Protein, | Negative | | EXTERNAL | | | Urine | | | LAB | | + + + + + + | pH, Urine | 7 | 5 - 9 | EXTERNAL | | | | | | LAB | | + + + + + + | Blood, | Negative | | EXTERNAL | | | Urine | | | LAB | | + + + + + + | Ketones | negative | | EXTERNAL | | | | | | LAB | | + + + + + + | Bilirubin, | Negative | | EXTERNAL | | | Urine | | | LAB | | + + + + + + | Glucose, | Negative | | EXTERNAL | | | Urine | | | LAB | | + + + + + + + + | Specimen | + + | Urine specimen | | (specimen) | + + + +---------+ + + | Performing | Address | City/State/Zipcode | Phone Number | | Organization | | | | + +---------+ + + | EXTERNAL LAB | | | | + +---------+ + + Uric Acid (12/06/2017 12:00 AM PDT) + +---------+ + + + | Component | Value | Ref Range | Performed | Pathologist | | | | | At | Signature | + +---------+ + + + | Uric Acid | 8.5 (A) | 4.4 - 7.6 | EXTERNAL | | | | | | LAB | | + +---------+ + + + + + | Specimen | + + | Blood specimen | | (specimen) | + + + +---------+ + + | Performing | Address | City/State/Zipcode | Phone Number | | Organization | | | | + +---------+ + + | EXTERNAL LAB | | | | + +---------+ + + Magnesium (12/06/2017 12:00 AM PDT) + +-------+ + + + | Component | Value | Ref Range | Performed | Pathologist | | | | | At | Signature | + +-------+ + + + | Magnesium | 2.4 | 1.7 - 2.5 mg/dL | EXTERNAL | | | | [...] | | | + +---------+ + + Renal Function Panel (12/06/2017 12:00 AM PDT) + +---------+ + + + | Component | Value | Ref Range | Performed | Pathologist | | | | | At | Signature | + +---------+ + + + | Glucose, | 122 (A) | 70 - 100 mg/dL | EXTERNAL | | | Fasting | | | LAB | | + +---------+ + + + | BUN | 16 | 6 - 23 mg/dL | EXTERNAL | | | | | | LAB | | + +---------+ + + + | Creatinine | 1.10 | 0.70 - 1.11 | EXTERNAL | | | | | mg/dL | LAB | | + +---------+ + + + | PHOSPHORUS | 2.5 | 2.5 - 5.0 mg/dL | EXTERNAL | | | | | | LAB | | + +---------+ + + + | Albumin | 4.1 | 3.5 - 5.0 | EXTERNAL | | | | | | LAB | | + +---------+ + + + | Na | 142 | 132 - 143 | EXTERNAL | | | | | mmol/L | LAB | | + +---------+ + + + | K | 3.9 | 3.6 - 5.1 | EXTERNAL | | | | | mmol/L | LAB | | + +---------+ + + + | Cl | 106 | 95 - 112 mmol/L | EXTERNAL | | | | | | LAB | | + +---------+ + + + | CO2 | 23 | 19 - 31 mmol/L | EXTERNAL | | | | | | LAB | | + +---------+ + + + | Anion Gap | 16.9 | 7 - 21 mmol/L | EXTERNAL | | | | | | LAB | | + +---------+ + + + | eGFR if not | | | EXTERNAL | | | | | | LAB | | | [place] | | | | | + +---------+ + + + | Phosphorus, | | | EXTERNAL | | | Inorganic | | | LAB | | + +---------+ + + + | BUN/Creatin | 14.5 | 6 - 28.6 | EXTERNAL | | | ine Ratio | | | LAB | | + +---------+ + + + | Calcium | 9.2 | 8.5 - 10.3 | EXTERNAL | | | | | mg/dL | LAB | | + +---------+ + + + | Estimated | 64 | mg/dL | EXTERNAL | | | GFR | | | LAB | | + +---------+ + + + + + | Specimen [...]
--- OUTSIDE RECORDS SUMMARY | ~2019-01-28 | XMS | Encounter Summary ---
Demographics + + + | Address | [address] | | | [place] [address] | + + + | Home Phone | | + + + | Preferred Language | Unknown | + + + | Marital Status | | + + + | Jew Affiliation | 1069 | + + + | Race | Unknown | + + + | Ethnic Group | Unknown | + + + Author + + + | Author | [facility] | | | and [place] | + + + | Organization | [facility] | | | and [place] | + + + | Address | Unknown | + + + | Phone | Unavailable | + + + Support + + + + + | Name | Relationship | Address | Phone | + + + + + | Montse Jain | ECON | [address] | | | | | [place] | | | | | [address] | | + + + + + Care Team Providers + +------+ + | Care Manager Agriculture Name | Role | Phone | + +------+ + | Kwabena Dimas MD PCP | | + +------+ + Encounter Details +--------+ + + + + | Date | Type | Department | Care Team | Description | +--------+ + + + + | 04/21/ | Orders Only | [facility] | Conversion | | | 2017 | | NEPHROLOGY [facility] | Transaction, | | | | | [address] | Provider Unknown | | | | | [address] | | | | | | [phone] | (Fax) | | | | | [phone] | | | +--------+ + + + [...] | EXTERNAL LAB: CBC | Routin | 04/21/2017 | | Results for this | | | e | 9:10 AM | | procedure are in the | | | | PST | | results section. | + +--------+ + + + | VITAMIN D, | Routin | 04/21/2017 | | Results for this | | DEFICIENCY SCREEN | e | 9:10 AM | | procedure are in the | | (25-HYDROXY) | | PST | | results section. | + +--------+ + + + | URINALYSIS, | Routin | 04/21/2017 | | Results for this | | MICROSCOPIC ONLY | e | 9:10 AM | | procedure are in the | | | | PST | | results section. | + +--------+ + + + | MAGNESIUM | Routin | 04/21/2017 | | Results for this | | | e | 9:10 AM | | procedure are in the | | | | PST | | results section. | + +--------+ + + + | COMPREHENSIVE | Routin | 04/21/2017 | | Results for this | | METABOLIC PANEL | e | 9:10 AM | | procedure are in the | | | | PST | | results section. | + +--------+ + + + documented in this encounter Results Vitamin D, Deficiency Screen (25-Hydroxy) (04/21/2017 9:10 AM PST) + +--------+ + + + | Component | Value | Ref Range | Performed | Pathologist | | | | | At | Signature | + +--------+ + + + | Vit D, | 26 (A) | 30 - 100 | EXTERNAL | | | 25-Hydroxy | | | LAB | | + +--------+ + + + + + | Specimen | + + | Blood specimen | | (specimen) | + + + +---------+ + + | Performing | Address | City/State/Zipcode | Phone Number | | Organization | | | | + +---------+ + + | EXTERNAL LAB | | | | + +---------+ + + Urinalysis, Microscopic Only (04/21/2017 9:10 AM PST) + + + + + + | [...] - 1.030 | EXTERNAL | | | [place] | | | LAB | | + [...] + + + + | Ketones | Negative | | EXTERNAL | | | | [...] + +---------+ + + External Lab: CBC (04/21/2017 9:10 AM PST) + +-------+ + + + | Component | Value | Ref Range | Performed | Pathologist | | | | | At | Signature | + +-------+ + + + | WBC | 5.9 | 4.5 - 11.0 10 | EXTERNAL | | | | | | LAB | | + +-------+ + + + | RED CELL | 4.92 | 4.3 - 5.7 10 | EXTERNAL | | | COUNT | | | LAB | | + +-------+ + + + | Hgb | 15.1 | 13.5 - 18.0 | EXTERNAL | | | | | g/dL | LAB | | + +-------+ + + + | Hematocrit, | 44.3 | 41 - 50 % | EXTERNAL | | | POC | | | LAB | | + +-------+ + + + | MCV | 90 | 81 - 99 fL | EXTERNAL | | | | | | LAB | | + +-------+ + + + | MCH | 31 | 27 - 33 pg | EXTERNAL | | | | | | LAB | | + +-------+ + + + | MCHC | 34 | 30 - 36 g/dL | EXTERNAL | | | | | | LAB | | + +-------+ + + + | Platelet | 296 | 140 - 440 K/ L | EXTERNAL | | | Count | | | LAB | | | Plasma | | | | | + +-------+ + + + | RDW-CV | 12.9 | 10.5 - 15.0 % | EXTERNAL [...] | | + +---------+ + + Magnesium (04/21/2017 9:10 AM PST) + +-------+ + + + | Component | Value | Ref Range | Performed | Pathologist | | | | | At | Signature | + +-------+ + + + | Magnesium | 2.3 | 1.7 - 2.5 mg/dL | EXTERNAL [...] | | | + +---------+ + + Comprehensive Metabolic Panel (04/21/2017 9:10 AM PST) + + + + + + | Component | Value | Ref Range | Performed | Pathologist | | | | | At | Signature | + + + + + + | Glucose, | 120 (A) | 70 - 100 mg/dL | EXTERNAL | | | Fasting | | | LAB | | + + + + + + | BUN | 17 | 6 - 23 mg/dL | EXTERNAL | | | | | | LAB | | + + + + + + | Creatinine | 1.24 (A) | 0.7 - 1.11 | EXTERNAL | | | | | mg/dL | LAB | | + + + + + + | BUN/Creatin | 13.7 | 6.0 - 28.6 | EXTERNAL | | | ine Ratio | | | LAB | | + + + + + + | Calcium | 9.8 | 8.4 - 10.2 | EXTERNAL | | | | | mg/dL | LAB | | + + + + + + | Protein, | 7.2 | 6.0 - 8.0 g/dL | EXTERNAL | | | Total | | | LAB | | + + + + + + | Albumin | 4.6 | 3.5 - 5.0 | EXTERNAL | | | | | | LAB | | + + + + + + | Globulin | 2.6 | 1.8 - 3.5 | EXTERNAL | | | | | | LAB | | + + + + + + | A/G Ratio | 1.8 | 1.1 - 2.4 | EXTERNAL | | | | | | LAB | | + + + + + + | Bilirubin | 0.6 | 0.0 - 1.2 mg/dL | EXTERNAL | | | Total | | | LAB | | + + + + + + | ALP, | 54 | 31 - 120 | EXTERNAL | | | External | | | LAB | | + + + + + + | ALT | 32 | 7 - 52 U/L | EXTERNAL | | | | | | LAB | | + + + + + + | AST | 25 | 13 - 39 U/L | EXTERNAL | | | | | | LAB | | + + + + + + | Na | 139 | 132 - 143 | EXTERNAL | [...] + + + + | CO2 | 27 | 19 - 31 mmol/L | EXTERNAL | | | | | | LAB | | + + + + + + | Anion Gap | 12.7 | 7 - 21 mmol/L | EXTERNAL | | | | | | LAB | | + + + + + + | Estimated | 56 (A) | 60 mg/dL | EXTERNAL | | | GFR [...]
--- OUTSIDE RECORDS SUMMARY | ~2019-01-28 | XMS | Encounter Summary ---
Demographics + + + | Address | [address] | | | [place] [address] | + + + | Home Phone | | + + + | Preferred Language | Unknown | + + + | Marital Status | | + + + | Buddhist Affiliation | 1069 | + + + | Race | Unknown | + + + | Ethnic Group | Unknown | + + + Author + + + | Author | [facility] | | | and [place] | + + + | Organization | [facility] | | | and [place] | + + + | Address | Unknown | + + + | Phone | Unavailable | + + + Support + + + + + | Name | Relationship | Address | Phone | + + + + + | Montse Jain | ECON | [address] | | | | | [place] | | | | | [address] | | + + + + + Care Team Providers + +------+ + | Care Company Doctor Name | Role | Phone | + +------+ + | Kwabena Dimas MD PCP | | + +------+ + Encounter Details +--------+ + + + + | Date | Type | Department | Care Team | Description | +--------+ + + + + | 10/01/ | Orders Only | [facility] | Conversion | | | 2016 | | NEPHROLOGY [facility] | Transaction, | | | | | [address] | Provider Unknown | | | | | [address] | | | | | | [phone] | (Fax) | | | | | [phone] | | | +--------+ + + + [...]
--- OUTSIDE RECORDS SUMMARY | ~2019-01-28 | XMS | Encounter Summary ---
Demographics + + + | Address | [address] | | | [place] [address] | + + + | Home Phone | | + + + | Preferred Language | Unknown | + + + | Marital Status | | + + + | Mandaen Affiliation | 1069 | + + + | Race | Unknown | + + + | Ethnic Group | Unknown | + + + Author + + + | Author | [facility] | | | and [place] | + + + | Organization | [facility] | | | and [place] | + + + | Address | Unknown | + + + | Phone | Unavailable | + + + Support + + + + + | Name | Relationship | Address | Phone | + + + + + | Montse Jain | ECON | [address] | | | | | [place] | | | | | [address] | | + + + + + Care Team Providers + +------+ + | Care Rubber Curer Name | Role | Phone | + +------+ + | Kwabena Dimas MD PCP | | + +------+ + Encounter Details +--------+ + + + + | Date | Type | Department | Care Team | Description | +--------+ + + + + | 12/28/ | Orders Only | [facility] | Conversion | | | 2017 | | CONVERSION [address]P [address] | Transaction, | | | | | [address] | Provider Unknown | | | | | [facility] | [phone] | | | | | [phone] | (Fax) | | | | | [phone] | | | +--------+ + + + [...]
--- OUTSIDE RECORDS SUMMARY | ~2019-01-28 | XMS | Encounter Summary ---
Demographics + + + | Address | [address] | | | [place] [address] | + + + | Home Phone | | + + + | Preferred Language | Unknown | + + + | Marital Status | | + + + | Hinduism Affiliation | 1069 | + + + | Race | Unknown | + + + | Ethnic Group | Unknown | + + + Author + + + | Author | [facility] | | | and [place] | + + + | Organization | [facility] | | | and [place] | + + + | Address | Unknown | + + + | Phone | Unavailable | + + + Support + + + + + | Name | Relationship | Address | Phone | + + + + + | oMntse Jain | ECON | [address] | | | | | [place] | | | | | [address] | | + + + + + Care Team Providers + +------+ + | Care Cloth Packer Name | Role | Phone | + +------+ + PCP | Unavailable | + +------+ + Encounter Details +--------+ + + + + | Date | Type | Department | Care Team | Description | +--------+ + + + + | 03/02/ | Hospital | [facility] | Robson Montgomery MD | Spinal Stenosis of | | 2008 - | Encounter | [facility] [address] | [address] | Lumbar Region | | | | [address] | [place], | | | 03/06/ | | [place], [place] | [place] [address] | | | 2008 | | [address] | [phone] | | | | | [phone] | | | +--------+ + + + [...] | + +--------+ + + + | FL C ARM < 1 HOUR | Routin | 03/02/2009 | | Results for this | | | e | 9:42 AM | | procedure are in the | | | | PST | | results section. | + +--------+ + + + | XR CHEST 2 VIEWS | Routin | 03/01/2009 | | Results for this | | | e | 4:01 PM | | procedure are in the | | | | PST | | results section. | + +--------+ + + + documented in this encounter Results FL C-Arm < 1 Hour (03/02/2009 9:42 AM PST) + + | Specimen | + + | | + + + + + | Narrative | Performed At | + + + | [facility] | | | [facility] [address] | | | , | | | [id number]/RADIOLOGY Patient Name: PIETRO JAIN Date of | | | : 1930 Medical Record: [id number] Account: | | | [id number] I/P/PATRICK 406 1/ Exam Date/Time: | | | 03/02/2009 07:30 A Ordering Provider: ROBSON MONTGOMERY Order | | | Detail: [id number] / / HDI Exam Description: XR C-ARM FLUORO UP TO | | | 1HR | | | | | | C-ARM FLUOROSCOPY 03/02/2009 HISTORY A 78-year-old male, | | | intraoperative. TECHNIQUE Sequence of 4 views via intraoperative | | | C-arm of the lumbar spine. FINDINGS There is disk prosthesis and | | | posterior longitudinal fixation rods and pedicle screws which are | | | present in good alignment on the last 2 films, L3-4. There is disk | | | space narrowing and osteophytosis, L1-2. Hardware is intact. Disk | | | prosthesis appears to be central. IMPRESSION Fusion and disk | | | prosthesis L3-4 as above. Would correlate with postoperative films at | | | the clinically appropriate time. Read by NINA CRESPO | | | 03/02/2009 04:09 P Electronically Signed by NINA CRESPO MD | | | 03/03/2009 10:07 A P | | | 02:27 A JULIO/jaden/[id number]/ cc: MD NINA REAVES | | | MD ROBSON CRESPO MD | | + + + + + | Procedure Note | + + | Alban Girard - 11/07/2018 3:36 AM PDT | | [facility] | | [facility] [address] | | , | | | | [id number]/RADIOLOGY | | | | Patient Name: PIETRO JAIN | | Date of : 1930 | | Medical Record: [id number] | | Account: [id number] | | I/P/PATRICK 406 1/ | | | | | | Exam Date/Time: 03/02/2009 07:30 A | | Ordering Provider: ROBSON MONTGOMERY | | Order Detail: [id number] / / HDI | | Exam Description: XR C-ARM FLUORO UP TO 1HR | | | | C-ARM FLUOROSCOPY 03/02/2009 | | | | HISTORY | | A 78-year-old male, intraoperative. | | | | TECHNIQUE | | Sequence of 4 views via intraoperative C-arm of the lumbar spine. | | | | FINDINGS | | There is disk prosthesis and posterior longitudinal fixation rods and | | pedicle screws which are present in good alignment on the last 2 films, | | L3-4. There is disk space narrowing and osteophytosis, L1-2. Hardware is | | intact. Disk prosthesis appears to be central. | | | | IMPRESSION | | Fusion and disk prosthesis L3-4 as above. Would correlate with | | postoperative films at the clinically appropriate time. | | | | | | Read by | | NINA CRESPO MD 03/02/2009 04:09 P | | Electronically Signed by | | NINA CRESPO MD 03/03/2009 10:07 A | | | | P | | A | | [facility]/[id number]/ | | cc: CHANA PERAZA MD | | NINA CRESPO MD | | ROBSON MONTGOMERY MD | + + XR Chest 2 Vws (03/01/2009 4:01 PM PST) + + | Specimen | + + | | + + + + + | Narrative | Performed At | + + + | [facility] | | | [facility] [address] | | | , | | | [id number]/RADIOLOGY Patient Name: PIETRO JAIN Date of | | | : 1930 Medical Record: [id number] Account: | | | [id number] I/P/ RR201/ Exam | | | Date/Time: 03/01/2009 02:38 P Ordering Provider: ROBSON MONTGOMERY | | | Order Detail: 7000 / / HDI Exam Description: XR CHEST 2 VIEW | | | | | | TWO VIEW CHEST 03/01/2009 HISTORY A 68-year-old male, pre-op, | | | preprocedural. TECHNIQUE PA and lateral views of the chest. | | | COMPARISON No prior study for comparison. FINDINGS The heart is | | | normal in size and configuration. The pulmonary parenchymal markings | | | are coarse. There is certainly hyperinflation and some scarring. | | | Degenerative change of the mid thoracic spine. No high grade lesion | | | or compression. Posterior costophrenic angles are collimated out of | | | the examination on the lateral view. IMPRESSION Chronic obstructive | | | pulmonary disease change and chronic parenchymal disease but no | | | evidence of acute process. Read by NIAN CRESPO MD | | | 03/01/2009 04:18 P Electronically Signed by NINA CRESPO MD | | | 03/02/2009 01:45 P P | | | 10:06 A [facility]/[id number]/ cc: MD NINA REAVES | | | MD ROBSON CRESPO MD | | + + + + + | Procedure Note | + + | Alban iGrard - 11/07/2018 3:36 AM PDT | | [facility] | | [facility] [address] | | , | | | | [id number]/RADIOLOGY | | | | Patient Name: PIETRO JAIN | | Date of : 1930 | | Medical Record: [id number] | | Account: [id number] | | I/P/RR RR201/ | | | | | | Exam Date/Time: 03/01/2009 02:38 P | | Ordering Provider: ROBSON MONTGOMERY | | Order Detail: 7000 / / HDI | | Exam Description: XR CHEST 2 VIEW | | | | TWO VIEW CHEST 03/01/2009 | | | | HISTORY | | A 68-year-old male, pre-op, preprocedural. | | | | TECHNIQUE | | PA and lateral views of the chest. | | | | COMPARISON | | No prior study for comparison. | | | | FINDINGS | | The heart is normal in size and configuration. The pulmonary parenchymal | | markings are coarse. There is certainly hyperinflation and some | | scarring. Degenerative change of the mid thoracic spine. No high grade | | lesion or compression. Posterior costophrenic angles are collimated out | | of the examination on the lateral view. | | IMPRESSION | | Chronic obstructive pulmonary disease change and chronic parenchymal | | disease but no evidence of acute process. | | | | Read by | | NINA CRESPO MD 03/01/2009 04:18 P | | Electronically Signed by | | NINA CRESPO MD 03/02/2009 01:45 P | | | | P | | A | | [facility]/[id number]/ | | cc: CHANA PERAZA MD | | NINA CRESPO MD | | ROBSON MONTGOMERY MD | + + documented in this encounter Visit Diagnoses + + | Diagnosis | + + | Spinal stenosis, lumbar region, without neurogenic claudication | + + documented in this encounter"
--- OUTSIDE RECORDS SUMMARY | ~2019-01-28 | XMS | Encounter Summary ---
Demographics + + + | Address | [address] | | | [place] [address] | + + + | Home Phone | | + + + | Preferred Language | Unknown | + + + | Marital Status | | + + + | Buddhist Affiliation | 1069 | + + + | Race | Unknown | + + + | Ethnic Group | Unknown | + + + Author + + + | Author | [facility] | | | and [place] | + + + | Organization | [facility] | | | and [place] | + + + | Address | Unknown | + + + | Phone | Unavailable | + + + Support + + + + + | Name | Relationship | Address | Phone | + + + + + | Montse Jain | ECON | [address] | | | | | [place] | | | | | [address] | | + + + + + Care Team Providers + +------+ + | Care Computer Aided Design Technician Name | Role | Phone | + +------+ + | Kwabena Dimas MD PCP | | + +------+ + Encounter Details +--------+ + + + + | Date | Type | Department | Care Team | Description | +--------+ + + + + | 12/06/ | Orders Only | [facility] | Conversion | | | 2017 | | NEPHROLOGY [place] | Transaction, | | | | | [address] | Provider Unknown | | | | | [address] [place] | | | | | | [phone] | (Fax) | | | | | [phone] | | | +--------+ + + + [...] - 1.030 | EXTERNAL | | | Bode | | | LAB | | + [...] | | | LAB | | | [facility] | | | | | + +---------+ [...]
--- OUTSIDE RECORDS SUMMARY | ~2019-01-28 | XMS | Encounter Summary ---
Demographics + + + | Address | [address] | | | [place] [address] | + + + | Home Phone | | + + + | Preferred Language | Unknown | + + + | Marital Status | | + + + | Jehovah'S Witness Affiliation | 1069 | + + + | Race | Unknown | + + + | Ethnic Group | Unknown | + + + Author + + + | Author | [facility] | | | and [place] | + + + | Organization | [facility] | | | and [place] | + + + | Address | Unknown | + + + | Phone | Unavailable | + + + Support + + + + + | Name | Relationship | Address | Phone | + + + + + | Montse Jian | ECON | [address] | | | | | [place] | | | | | [address] | | + + + + + Care Team Providers + +------+ + | Care Graffiti Cleaner Name | Role | Phone | + +------+ + | Kwabena Dimas MD PCP | | + +------+ + Encounter Details +--------+ + + + + | Date | Type | Department | Care Team | Description | +--------+ + + + + | 06/15/ | Orders Only | [facility] | Tato rUrutia, | | | 2019 | | NEPHROLOGY [place] | [address] | | | | | [address] | [place] | | | | | [place] | [place] | | | | | [address] | [address] | | | | | [phone] | [phone] | | | | | | | | +--------+ + + + + Social History + +-------+ +--------+------+ | Tobacco Use | Types | Packs/Day | Years | Date | | | | | Used | | + +-------+ +--------+------+ | Former Smoker | | | | | + +-------+ [...]
--- OUTSIDE RECORDS SUMMARY | ~2019-01-28 | XMS | Encounter Summary ---
Demographics + + + | Address | [address] | | | [place] [address] | + + + | Home Phone | | + + + | Preferred Language | Unknown | + + + | Marital Status | | + + + | Gnosticism Affiliation | 1069 | + + + | Race | Unknown | + + + | Ethnic Group | Unknown | + + + Author + + + | Author | [facility] | | | and [place] | + + + | Organization | [facility] | | | and [place] | + + + | Address | Unknown | + + + | Phone | Unavailable | + + + Support + + + + + | Name | Relationship | Address | Phone | + + + + + | Montse Jain | ECON | [address] | | | | | [place] | | | | | [address] | | + + + + + Care Team Providers + +------+ + | Care Lpn Medical Assistant Name | Role | Phone | + +------+ + | Kwabena Dimas MD PCP | | + +------+ + Encounter Details +--------+ + + + + | Date | Type | Department | Care Team | Description | +--------+ + + + + | 09/11/ | Orders Only | [facility] | Conversion | | | 2017 | | CONVERSION [address] | Transaction, | | | | | [address] | Provider Unknown | | | | | [place] | [phone] | | | | | [phone] | (Fax) | | | | | [phone] | | | +--------+ + + + [...]
--- OUTSIDE RECORDS SUMMARY | ~2019-01-28 | XMS | Encounter Summary ---
Demographics + + + | Address | [address] | | | [place] [address] | + + + | Home Phone | | + + + | Preferred Language | Unknown | + + + | Marital Status | | + + + | Advent Affiliation | 1069 | + + + | Race | Unknown | + + + | Ethnic Group | Unknown | + + + Author + + + | Author | [facility] | | | and [place] | + + + | Organization | [facility] | | | and [place] | + + + | Address | Unknown | + + + | Phone | Unavailable | + + + Support + + + + + | Name | Relationship | Address | Phone | + + + + + | Montse Jain | ECON | [address] | | | | | [place] | | | | | [address] | | + + + + + Care Team Providers + +------+ + | Care Issue Clerk Name | Role | Phone | + +------+ + | Kwabena Dimas MD | PCP | | + +------+ + Encounter Details +--------+ + + + + | Date | Type | Department | Care Team | Description | +--------+ + + + + | 12/21/ | Orders Only | [facility] | Maciej Oglesby MD | | | 2017 | | NEPHROLOGY [place] | [address] [place] | | | | | [address] [place] | [address] [place], [place] | | | | | [address] [place], [place] | [address] | | | | | [address] | | | | | | [phone] | | | +--------+ + + + [...] | EXTERNAL LAB: CBC | Routin | 12/21/2016 | | Results for this | | | e | 8:52 AM | | procedure are in the | | | | PDT | | results section. | + +--------+ + + + | URINALYSIS WITH | Routin | 12/21/2016 | | Results for this | | MICROSCOPIC IF | e | 8:52 AM | | procedure are in the | | INDICATED | | PDT | | results section. | + +--------+ + + + | URIC ACID | Routin | 12/21/2016 | | Results for this | | | e | 8:52 AM | | procedure are in the | | | | PDT | | results section. | + +--------+ + + + | MAGNESIUM | Routin | 12/21/2016 | | Results for this | | | e | 8:52 AM | | procedure are in the | | | | PDT | | results section. | + +--------+ + + + | RENAL FUNCTION PANEL | Routin | 12/21/2016 | | Results for this | | | e | 8:52 AM | | procedure are in the | | | | PDT | | results section. | + +--------+ + + + documented in this encounter Results Urinalysis with Microscopic if Indicated (12/21/2016 8:52 AM PDT) + + + + + [...] + + + + + + | Spec Grav, | 1.011 | 1.005 - 1.030 | EXTERNAL | | | Fluid | | | LAB | | + [...] + + + + + + | Total | Negative | | EXTERNAL | | | Protein | | | LAB | | + + + + + + | pH, Urine | 7 | 5 - 9 | EXTERNAL | | | | | | LAB | | + + + + + + | Blood, | Comment: 10 | | EXTERNAL | | | Urine [...] | + +---------+ + + External Lab: [facility] (12/21/2016 8:52 AM PDT) + +-------+ + + + | Component | Value | Ref Range | Performed | Pathologist | | | | | At | Signature | + +-------+ + + + | WBC | 5.5 | 4.5 - 11.0 10 | EXTERNAL | | | | | | LAB | | + +-------+ + + + | RED CELL | 4.78 | 4.3 - 5.7 10 | EXTERNAL | | | COUNT | | | LAB | | + +-------+ + + + | Hgb | 15.2 | 13.5 - 18.0 | EXTERNAL | | | | | g/dL | LAB | | + +-------+ + + + | Hematocrit, | 43.2 | 41 - 50 % | EXTERNAL | | | POC | | | LAB | | + +-------+ + + + | MCV | 90.3 | 81 - 99 fL | EXTERNAL [...] +-------+ + + + | Platelet | 267 | 140 - 440 K/ L | EXTERNAL | | | Count | | | LAB | | | Plasma | | | | | + +-------+ + + + | RDW-CV | 13.3 | 10.5 - 15.0 % | EXTERNAL [...] | + +---------+ + + Uric Acid (12/21/2016 8:52 AM PDT) + +-------+ + + + | Component | Value | Ref Range | Performed | Pathologist | | | | | At | Signature | + +-------+ + + + | Uric Acid | 7.4 | 4.4 - 7.6 | EXTERNAL | [...] | | + +---------+ + + Magnesium (12/21/2016 8:52 AM PDT) + +-------+ + + + | Component | Value | Ref Range | Performed | Pathologist | | | | | At | Signature | + +-------+ + + + | Magnesium | 2.1 | 1.7 - 2.5 mg/dL | EXTERNAL [...] + +---------+ + + Renal Function Panel (12/21/2016 8:52 AM PDT) + +---------+ + + + | Component | Value | Ref Range | Performed | Pathologist | | | | | At | Signature | + +---------+ + + + | Glucose, | 106 (A) | 70 - 100 mg/dL | EXTERNAL | | | Fasting | | | LAB | | + +---------+ + + + | BUN | 13 | 6 - 23 mg/dL | EXTERNAL | | | | | | LAB | | + +---------+ + + + | Creatinine | 1.01 | 0.70 - 1.11 | EXTERNAL | | | | | mg/dL | LAB | | + +---------+ + + + | PHOSPHORUS | | mg/dL | EXTERNAL | | | | | | LAB | | + +---------+ + + + | Albumin | 4.1 | 3.5 - 5.0 | EXTERNAL | | | | | | LAB | | + +---------+ + + + | Na | 145 (A) | 132 - 143 | EXTERNAL | | | | | mmol/L | LAB | | + +---------+ + + + | K | 4.0 | 3.6 - 5.1 | EXTERNAL | | | | | mmol/L | LAB | | + +---------+ + + + | Cl | 110 | 95 - 112 mmol/L | EXTERNAL | | | | | | LAB | | + +---------+ + + + | CO2 | 23 | 19 - 31 mmol/L | EXTERNAL | | | | | | LAB | | + +---------+ + + + | Anion Gap | 16.0 | 7 - 21 mmol/L | EXTERNAL | | | | | | LAB | | + +---------+ + + + | eGFR if not | | | EXTERNAL | | | | | | LAB | | | [facility] | | | | | + +---------+ + + + | Phosphorus, | 2.5 | 2.5 - 5.0 | EXTERNAL | | | Inorganic | | | LAB | | + +---------+ + + + | BUN/Creatin | 12.9 | 6.0 - 28.6 | EXTERNAL | | | ine Ratio | | | LAB | | + +---------+ + + + | Calcium | 9.0 | 8.4 - 10.2 | EXTERNAL | | | | | mg/dL | LAB | | + +---------+ + + + | Estimated | 70 | mg/dL | EXTERNAL | | | [...]
--- OUTSIDE RECORDS SUMMARY | ~2019-01-28 | XMS | Encounter Summary ---
Demographics + + + | Address | [address] | | | [place] [address] | + + + | Home Phone | | + + + | Preferred Language | Unknown | + + + | Marital Status | | + + + | Anabaptism Affiliation | 1069 | + + + | Race | Unknown | + + + | Ethnic Group | Unknown | + + + Author + + + | Author | [facility] | | | and [place] | + + + | Organization | [facility] | | | and [place] | + + + | Address | Unknown | + + + | Phone | Unavailable | + + + Support + + + + + | Name | Relationship | Address | Phone | + + + + + | Montse Jain | ECON | [address] [facility] [address] | | | | | [place] | | | | | [address] | | + + + + + Care Team Providers + +------+ + | Care Surveillance Director Name | Role | Phone | + [...] Provider Unknown | | | | [facility] | [phone] | | | | | [phone] | (Fax) | | | | | [phone] | | | +--------+ + + + [...]
--- OUTSIDE RECORDS SUMMARY | ~2019-01-28 | XMS | Encounter Summary ---
Demographics + + + | Address | [address] | | | [place] [address] | + + + | Home Phone | | + + + | Preferred Language | Unknown | + + + | Marital Status | | + + + | Baptism Affiliation | 1069 | + + + | Race | Unknown | + + + | Ethnic Group | Unknown | + + + Author + + + | Author | [facility] | | | and [place] | + + + | Organization | [facility] | | | and [place] | + + + | Address | Unknown | + + + | Phone | Unavailable | + + + Support + + + + + | Name | Relationship | Address | Phone | + + + + + | Montse Jain | ECON | [address] | | | | | [place] | | | | | [address] | | + + + + + Care Team Providers + +------+ + | Care Formulation Technician Name | Role | Phone | + +------+ + | Kwabena Dimas MD PCP | | + +------+ + Encounter Details +--------+ + + + + | Date | Type | Department | Care Team | Description | +--------+ + + + + | 09/07/ | Orders Only | [facility] | Conversion | | | 2016 | | NEPHROLOGY [place] | Transaction, | | | | | [address] | Provider Unknown | | | | | [address] [place] | | | | | | [phone] | (Fax) | | | | | [phone] | | | +--------+ + + + [...] | EXTERNAL LAB: CBC | Routin | 09/07/2016 | | Results for this | | | e | 12:26 PM | | procedure are in the | | | | PDT | | results section. | + +--------+ + + + | URINALYSIS, | Routin | 09/07/2016 | | Results for this | | MICROSCOPIC ONLY | e | 12:26 PM | | procedure are in the | | | | PDT | | results section. | + +--------+ + + + | PROTEIN/CREATININE | Routin | 09/07/2016 | | Results for this | | RATIO, URINE | e | 12:26 PM | | procedure are in the | | | | PDT | | results section. | + +--------+ + + + | URIC ACID | Routin | 09/07/2016 | | Results for this | | | e | 12:26 PM | | procedure are in the | | | | PDT | | results section. | + +--------+ + + + | MAGNESIUM | Routin | 09/07/2016 | | Results for this | | | e | 12:26 PM | | procedure are in the | | | | PDT | | results section. | + +--------+ + + + | BASIC METABOLIC | Routin | 09/07/2016 | | Results for this | | PANEL | e | 12:26 PM | | procedure are in the | | | | PDT | | results section. | + +--------+ + + + documented in this encounter Results Protein/Creatinine Ratio, Urine (09/07/2016 12:26 PM PDT) + +-------+ + + + | Component | Value | Ref Range | Performed | Pathologist | | | | | At | Signature | + +-------+ + + + | Protein/Cre | 64.1 | 0 - 150 | EXTERNAL | | | at Ratio | | | LAB | | [...] + +---------+ + + Urinalysis, Microscopic Only (09/07/2016 12:26 PM PDT) + + + + + + [...] + + + + | Specific | 1.007 | 1.005 - 1.030 | EXTERNAL | | | [place] | | | LAB | | + [...] + +---------+ + + External Lab: CBC (09/07/2016 12:26 PM PDT) + +---------+ + + + | Component | Value | Ref Range | Performed | Pathologist | | | | | At | Signature | + +---------+ + + + | WBC | 4.4 (A) | 4.5 - 11.0 10 | EXTERNAL | | | | | | LAB | | + +---------+ + + + | RED CELL | 4.75 | 4.3 - 5.7 10 | EXTERNAL | | | COUNT | | | LAB | | + +---------+ + + + | Hgb | 14.9 | 13.5 - 18.0 | EXTERNAL | | | | | g/dL | LAB | | + +---------+ + + + | Hematocrit, | 42.2 | 41 - 50 % | EXTERNAL | | | POC | | | LAB | | + +---------+ + + + | MCV | 88.8 | 81 - 99 fL | EXTERNAL | | | | | | LAB | | + +---------+ + + + | MCH | 31 | 27 - 33 pg | EXTERNAL | | | | | | LAB | | + +---------+ + + + | MCHC | 35 | 30 - 36 g/dL | EXTERNAL | | | | | | LAB | | + +---------+ + + + | Platelet | 242 | 140 - 440 K/ L | EXTERNAL | | | Count | | | LAB | | | Plasma | | | | | + +---------+ + + + | RDW-CV | 13.2 | 10.5 - 15.0 % | EXTERNAL | | | | | | LAB | | + +---------+ + + + | MPV | | fL | EXTERNAL | | | | | | LAB | | + +---------+ + + + | Differentia | | | EXTERNAL | | | l Type | | | LAB | | + +---------+ + + + | % Segmented | | % | EXTERNAL | | | | | | LAB | | | Neutrophils | | | | | + +---------+ + + + | % | | % | EXTERNAL | | | Lymphocytes | | | LAB | | + +---------+ + + + | % Monocytes | | % | EXTERNAL | | | | | | LAB | | + +---------+ + + + | % | | % | EXTERNAL | | | Eosinophils | | | LAB | | + +---------+ + + + | % Basophils | | % | EXTERNAL | | | | | | LAB | | + +---------+ + + + | Absolute | | / L | EXTERNAL | | | Segmented | | | LAB | | | Neutrophils | | | | | + +---------+ + + + | Absolute | | / L | EXTERNAL | | | Lymphocytes | | | LAB | | + +---------+ + + + | Absolute | | / L | EXTERNAL | | | Monocytes | | | LAB | | + +---------+ + + + | Absolute | | / L | EXTERNAL | | | Eosinophils | | | LAB | | + +---------+ + + + | Absolute | | [...] | + +---------+ + + Uric Acid (09/07/2016 12:26 PM PDT) + +---------+ + + + | Component | Value | Ref Range | Performed | Pathologist | | | | | At | Signature | + +---------+ + + + | Uric Acid | 8.7 (A) | 4.4 - 7.6 | EXTERNAL [...] | | + +---------+ + + Magnesium (09/07/2016 12:26 PM PDT) + +-------+ + + + | Component | Value | Ref Range | Performed | Pathologist | | | | | At | Signature | + +-------+ + + + | Magnesium | 2.2 | 1.7 - 2.5 mg/dL | EXTERNAL [...] + +---------+ + + Basic Metabolic Panel (09/07/2016 12:26 PM PDT) + + + + + + | Component | Value | Ref Range | Performed | Pathologist | | | | | At | Signature | + + + + + + | Glucose, | 133 (A) | 70 - 100 mg/dL | EXTERNAL | | | Fasting | | | LAB | | + + + + + + | BUN | 16 | 6 - 23 mg/dL | EXTERNAL | | | | | | LAB | | + + + + + + | Creatinine | 1.27 (A) | 0.70 - 1.11 | EXTERNAL | | | | | mg/dL | LAB | | + + + + + + | BUN/Creatin | 12.6 | 6.0 - 28.6 | EXTERNAL | | | ine Ratio | | | LAB | | + + + + + + | Calcium | 9.3 | 8.4 - 10.2 | EXTERNAL | | | | | mg/dL | LAB | | + + + + + + | Na | 140 | 132 - 143 | EXTERNAL | | | | | mmol/L | LAB | | + + + + + + | K | 3.5 (A) | 3.6 - 5.1 | EXTERNAL | | | | | mmol/L | LAB | | + + + + + + | Cl | 106 | 95 - 112 mmol/L | EXTERNAL | | | | | | LAB | | + + + + + + | CO2 | 23 | 19 - 31 mmol/L | EXTERNAL | | | | | | LAB | | + + + + + + | Anion Gap | 14.5 | 7 - 21 mmol/L | EXTERNAL | | | | | | LAB | | + + + + + + | Estimated | 54 | mg/dL | EXTERNAL | | | [...]
--- OUTSIDE RECORDS SUMMARY | ~2019-01-28 | XMS | Encounter Summary ---
Demographics + + + | Address | [address] | | | [place] [address] | + + + | Home Phone | | + + + | Preferred Language | Unknown | + + + | Marital Status | | + + + | Alevism Affiliation | 1069 | + + + | Race | Unknown | + + + | Ethnic Group | Unknown | + + + Author + + + | Author | [facility] | | | and [place] | + + + | Organization | [facility] | | | and [place] | + + + | Address | Unknown | + + + | Phone | Unavailable | + + + Support + + + + + | Name | Relationship | Address | Phone | + + + + + | Montse Jain | ECON | [address] | | | | | [place] | | | | | [address] | | + + + + + Care Team Providers + +------+ + | Care Roller Skater Name | Role | Phone | + +------+ + PCP | Unavailable | + +------+ + Encounter Details +--------+ + + + + | Date | Type | Department | Care Team | Description | +--------+ + + + + | 06/13/ | Orders Only | [facility] | Conversion | | | 2019 | | NEPHROLOGY [place] | Transaction, | | | | | [address] | Provider Unknown | | | | | [address] [place] | [phone] | | | | | [address] | | | | | | [phone] | | | +--------+ + + + [...] + | URIC ACID | Routin | 06/13/2018 | | Results for this | | | e | 8:35 AM | | procedure are in the | | | | PDT | | results section. | + +--------+ + + + documented in this encounter Results Uric Acid (06/13/2018 8:35 AM PDT) + + + + + + | Component | Value | Ref Range | Performed | Pathologist | | | | | At | Signature | + + + + + + | Uric Acid | 10.1 (A) | 4.4 - 7.6 | EXTERNAL [...]
--- OUTSIDE RECORDS SUMMARY | ~2019-01-28 | XMS | Encounter Summary ---
Demographics + + + | Address | [address] | | | [place] [address] | + + + | Home Phone | | + + + | Preferred Language | Unknown | + + + | Marital Status | | + + + | Baptism Affiliation | 1069 | + + + | Race | Unknown | + + + | Ethnic Group | Unknown | + + + Author + + + | Author | [facility] | | | and [place] | + + + | Organization | [facility] | | | and [place] | + + + | Address | Unknown | + + + | Phone | Unavailable | + + + Support + + + + + | Name | Relationship | Address | Phone | + + + + + | Montse Jain | ECON | [address] | | | | | [place] | | | | | [address] | | + + + + + Care Team Providers + +------+ + | Care Accelerator Systems Director Name | Role | Phone | + +------+ + PCP | Unavailable | + +------+ + Encounter Details +--------+ + + + + | Date | Type | Department | Care Team | Description | +--------+ + + + + | 06/13/ | Orders Only | [facility] | Conversion | | | 2019 | | NEPHROLOGY [place] | Transaction, | | | | | [address] | Provider Unknown | | | | | [address] [place] | [phone] | | | | | [address] | | | | | | [phone] | | | +--------+ + + + [...]
--- OUTSIDE RECORDS SUMMARY | ~2019-01-28 | XMS | Encounter Summary ---
Demographics + + + | Address | [address] [address] | | | [place] [address] | + + + | Home Phone | | + + + | Preferred Language | Unknown | + + + | Marital Status | | + + + | Restorationism Affiliation | 1069 | + + + | Race | Unknown | + + + | Ethnic Group | Unknown | + + + Author + + + | Author | [facility] | | | and [place] | + + + | Organization | [facility] | | | and [place] | + + + | Address | Unknown | + + + | Phone | Unavailable | + + + Support + + + + + | Name | Relationship | Address | Phone | + + + + + | Montse Jain | ECON | [address] | | | | | [place] | | | | | [address] | | + + + + + Care Team Providers + +------+ + | Care Back Office Medical Assistant Name | Role | Phone | + +------+ + PCP | Unavailable | + +------+ + Encounter Details +--------+ + + + + | Date | Type | Department | Care Team | Description | +--------+ + + + + | 08/05/ | Hospital | [facility] | Robson Montgomery MD | Spinal Stenosis of | | 2009 | Encounter | CONVERSION DEP [address] | [address] | Lumbar Region | | | | [address] | [address], | | | | | [place] | [place] [address] | | | | | [address] | [phone] | | | | | [phone] | | | +--------+ + + + [...] + +--------+ + + + | XR LUMBAR SPINE 2 OR | Routin | 08/05/2009 | | Results for this | | 3 VW | e | 8:50 AM | | procedure are in the | | | | PDT | | results section. | + +--------+ + + + documented in this encounter Results XR Lumbar Spine 2 or 3 Vw (08/05/2009 8:50 AM PDT) + + | Specimen | + + | | + + + + + | Narrative | Performed At | + + + | [facility] [address] Ph: | | | Patient Name: PIETRO JAIN Date of : | | | 1930 Medical Record: [id number] Account: [id number] | | | Exam Date/Time: 08/05/2009 08:40 Ordering | | | Physician: ROBSON MONTGOMERY Order Detail: [id number] Exam Description: XR | | | LUMBAR SPINE LMT 2-3V | | | | | | History: Post L3 -- L4 LIF. Findings: AP lateral films of the | | | lumbar spine were compared with C-arm images of . | | | Transpedicular screws are noted L3 and L4 bilaterally, with disk space | | | material L3 -- L4. There is retrolisthesis of L2 on L3 a 4.8 | | | mm, with moderate to space narrowing at L1 -- L2 L2 -- L3 with mild | | | to moderate vertebral endplate spurring. Slight to space | | | narrowing L3 -- L4 is noted. Vertebral height disk spaces and | | | alignment are otherwise maintained. Impression Transpedicular | | | fusion L3 -- L4 with disk spacer material L3 -- L4. Retrolisthesis | | | L2 on L3 of 4.8 mm with moderate to space narrowing at L1 -- L2 L2 | | | -- L3 and moderate degenerative disk disease. Electronically | | | signed by Emil Solorzano MD on 08/05/2009 12:23 PM | | + + + + + | Procedure Note | + + | Shaji, Rad Conversion - 11/06/2018 4:45 PM PDT | | [facility] | | [facility] [address] | | | | | | Patient Name: PIETRO JAIN | | Date of : 1930 | | Medical Record: [id number] | | Account: [id number] | | | | | | Exam Date/Time: 08/05/2009 08:40 | | Ordering Physician: ROBSON MONTGOMERY | | Order Detail: [id number] | | Exam Description: XR LUMBAR SPINE LMT 2-3V | | | | History: Post L3 -- L4 LIF. | | | | Findings: AP lateral films of the lumbar spine were compared with C-arm | | images of . | | | | Transpedicular screws are noted L3 and L4 bilaterally, with disk space | | material L3 -- L4. | | | | There is retrolisthesis of L2 on L3 a 4.8 mm, with moderate to space | | narrowing at L1 -- L2 L2 -- L3 with mild to moderate vertebral endplate | | spurring. | | | | Slight to space narrowing L3 -- L4 is noted. Vertebral height disk spaces | | and alignment are otherwise maintained. | | | | Impression | | | | Transpedicular fusion L3 -- L4 with disk spacer material L3 -- L4. | | | | Retrolisthesis L2 on L3 of 4.8 mm with moderate to space narrowing at L1 -- | | L2 L2 -- L3 and moderate degenerative disk disease. | | | | | + + documented in this encounter Visit Diagnoses + + | Diagnosis | + + | Spinal stenosis, lumbar region, without neurogenic claudication | + + documented in this encounter"
--- OUTSIDE RECORDS SUMMARY | ~2019-01-28 | XMS | Encounter Summary ---
Demographics + + + | Address | [address] | | | [place] [address] | + + + | Home Phone | | + + + | Preferred Language | Unknown | + + + | Marital Status | | + + + | Episcopalian Affiliation | 1069 | + + + | Race | Unknown | + + + | Ethnic Group | Unknown | + + + Author + + + | Author | [facility] | | | and [place] | + + + | Organization | [facility] | | | and [place] | + + + | Address | Unknown | + + + | Phone | Unavailable | + + + Support + + + + + | Name | Relationship | Address | Phone | + + + + + | Montse Jain | ECON | [address] | | | | | [place] | | | | | [address] | | + + + + + Care Team Providers + +------+ + | Care Sprinkler Fitter Apprentice Name | Role | Phone | + +------+ + | Kwabena Dimas MD PCP | | + +------+ + Encounter Details +--------+ + + + + | Date | Type | Department | Care Team | Description | +--------+ + + + + | 06/15/ | Orders Only | [facility] | Tato Urrutia, | | | 2019 | | NEPHROLOGY [facility] | REAL ESTATE ATTORNEY [address] | | | | | [address] | [place] | | | | | [place] | [place] | | | | | [address] | [address] | | | | | [phone] | [phone] | | | | | | | [...]
--- OUTSIDE RECORDS SUMMARY | ~2019-01-28 | XMS | Encounter Summary ---
Demographics + + + | Address | [address] | | | [place] [address] | + + + | Home Phone | | + + + | Preferred Language | Unknown | + + + | Marital Status | | + + + | Evangelical Affiliation | 1069 | + + + | Race | Unknown | + + + | Ethnic Group | Unknown | + + + Author + + + | Author | [facility] | | | and [place] | + + + | Organization | [facility] | | | and [place] | + + + | Address | Unknown | + + + | Phone | Unavailable | + + + Support + + + + + | Name | Relationship | Address | Phone | + + + + + | Montse Jain | ECON | [address] | | | | | [place] | | | | | [address] | | + + + + + Care Team Providers + +------+ + | Care Stock Or Delivery Clerk Name | Role | Phone | + +------+ + | Kwabena Dimas MD PCP | | + +------+ + Encounter Details +--------+ + + + + | Date | Type | Department | Care Team | Description | +--------+ + + + + | 12/21/ | Orders Only | [facility] | Conversion | | | 2016 | | NEPHROLOGY RENÉE | Transaction, | | | | | [address] | Provider Unknown | | | | | [address] [place] [address] | | | | | | [address] | (Fax) | | | | | [phone] | | | +--------+ + + + [...] + + | PROTEIN/CREATININE | Routin | 12/21/2016 | | Results for this | | RATIO, URINE | e | 8:52 AM | | procedure are in the | | | | PDT | | results section. | + +--------+ + + + documented in this encounter Results Protein/Creatinine Ratio, Urine (12/21/2016 8:52 AM PDT) + + + + + + | Component | Value | Ref Range | Performed | Pathologist | | | | | At | Signature | + + + + + + | Protein/Cre | 173.3 (A) | 0 - 150 | EXTERNAL | [...]
--- OUTSIDE RECORDS SUMMARY | ~2019-01-28 | XMS | Encounter Summary ---
Demographics + + + | Address | [address] | | | [place] [address] | + + + | Home Phone | | + + + | Preferred Language | Unknown | + + + | Marital Status | | + + + | Oriental Orthodox Affiliation | 1069 | + + + | Race | Unknown | + + + | Ethnic Group | Unknown | + + + Author + + + | Author | [facility] | | | and [place] | + + + | Organization | [facility] | | | and [place] | + + + | Address | Unknown | + + + | Phone | Unavailable | + + + Support + + + + + | Name | Relationship | Address | Phone | + + + + + | Montse Jain | ECON | [address] | | | | | [place] | | | | | [address] | | + + + + + Care Team Providers + +------+ + | Care Environment Artist Name | Role | Phone | + +------+ + PCP | Unavailable | + +------+ + Encounter Details +--------+ + + + + | Date | Type | Department | Care Team | Description | +--------+ + + + + | 03/02/ | Hospital | [facility] | Robson Montgomery MD | Spinal Stenosis of | | 2008 - | Encounter | [facility] [address] | [address] | Lumbar Region | | | | [address] | [place], | | | 03/06/ | | [place], [place] | [place] [address] | | | 2008 | | [address] | [phone] | | | | | [phone] | | | +--------+ + + + [...] Performed At | + + + | [facility] | | | [facility] [address] | | | , | | | [id number]/RADIOLOGY Patient Name: PIETRO JAIN Date of | | | : 1930 Medical Record: [id number] Account: | | | [id number] I/P/PATRICK 406 1/ Exam Date/Time: | | [...] A P | | | 02:27 A JULIO/jaden/[id number]/ cc: MD NINA REAVES | | | MD ROBSON CRESPO MD | | + + + + + | Procedure Note | + + | Alban Girard - 11/07/2018 3:36 AM PDT | | [facility] | | [facility] [address] | | , | | | | [id number]/RADIOLOGY | | | | Patient Name: PIETRO JAIN | | Date of : 1930 | | Medical Record: [id number] | | Account: [id number] | | I/P/PATRICK 406 1/ | | [...] P | | A | | [facility]/[id number]/ | | cc: CHANA PERAZA MD | | NINA CRESPO MD | | ROBSON MONTGOMERY MD | + + XR Chest 2 Vws (03/01/2009 4:01 PM PST) + + | Specimen | + + | | + + + + + | Narrative | Performed At | + + + | [facility] | | | [facility] [address] | | | , | | | [id number]/RADIOLOGY Patient Name: PIETRO JAIN Date of | | | : 1930 Medical Record: [id number] Account: | | | [id number] I/P/ RR201/ Exam | | | Date/Time: [...] | evidence of acute process. Read by NINA CRESPO MD | | | 03/01/2009 04:18 P Electronically Signed by NINA CRESPO MD | | | 03/02/2009 01:45 P P | | | 10:06 A [facility]/[id number]/ cc: MD NINA REAVES | | | MD ROBSON CRESPO MD | | + + + + + | Procedure Note | + + | Alban Girard - 11/07/2018 3:36 AM PDT | | [facility] | | [facility] [address] | | , | | | | [id number]/RADIOLOGY | | | | Patient Name: PIETRO JAIN | | Date of : 1930 | | Medical Record: [id number] | | Account: [id number] | | I/P/RR RR201/ | | | [...] P | | A | | [facility]/[id number]/ | | cc: CHANA PERAZA MD | | NINA CRESPO MD | | ROBSON MONTGOMERY MD | + + documented in this encounter Visit Diagnoses + + | Diagnosis | + + | Spinal stenosis, lumbar region, without neurogenic claudication | + + documented in this encounter"
--- OUTSIDE RECORDS SUMMARY | ~2019-01-28 | XMS | Clinical Summary ---
Demographics + + + | Address | [address] | | | [place] [address] | + + + | Home Phone | | + + + | Preferred Language | Unknown | + + + | Marital Status | | + + + | Islam Affiliation | 1069 | + + + | Race | Unknown | + + + | Ethnic Group | Unknown | + + + Author + + + | Author | [facility] | | | and [place] | + + + | Organization | [facility] | | | and [place] | + + + | Address | Unknown | + + + | Phone | Unavailable | + + + Support + + + + + | Name | Relationship | Address | Phone | + + + + + | Montse Jain | ECON | [address] [facility] | | | | | [place] | | | | | [address] | | + + + + + Care Team Providers + +------+ + | Care Procedures Analyst Name | Role | Phone | + +------+ + | Kwabena Dimas MD | PCP | | + +------+ + Allergies + + + + + + | Active Allergy | Reactions | Severity | Noted | Comments | | | | | Date | | + + + + + + | Tamsulosin | Other (See Comments) | Medium | 06/19/20 | Stomache upset. | | | | | 17 | | + + + + + + | Terazosin Hcl | Other (See Comments) | Medium | 09/01/19 | Stomache upset. | | | | | 17 | | + + + + + + Medications + + + +---------+------+------+-------+ | Medication | Sig | Dispensed | Refills | Star | End | Statu | | | | | | t | Date | s | | | | | | Date | | | + + + +---------+------+------+-------+ | aspirin 81 MG | Take 81 mg by mouth | | 0 | 08/13 | | Activ | | tablet | daily. 03/18 of 81 MG | | | 12/02 | | e | | | tablet daily | | | 17 | | | + + + +---------+------+------+-------+ | amLODIPine | Take 10 mg by mouth | | 0 | 06/1 | | Activ | | (NORVASC) 5 mg | 2 (two) times daily. | | | 9/20 | | e | | tablet | | | | 17 | | | + + + +---------+------+------+-------+ | timolol maleate | 1 drop daily. | | 0 | 06/1 | | Activ | | (TIMOPTIC) 0.5% | | | | 9/20 | | e | | ophthalmic solution | | | | 17 | | | + + + +---------+------+------+-------+ | losartan (COZAAR) | Take 50 mg by mouth | | 0 | 06/1 | | Activ | | 50 mg tablet | daily. | | | 9/20 | | e | | | | | | 17 | | | + + + +---------+------+------+-------+ | | Take 12.5 mg by | | 0 | 08/13 | | Activ | | hydroCHLOROthiazide | mouth daily. | | | 12/02 | | e | | 25 mg tablet | | | | 17 | | | + + + +---------+------+------+-------+ | acetaminophen | Take 500 mg by mouth | | 0 | 08/13 | | Activ | | (TYLENOL) 500 mg | nightly as needed | | | 12/02 | | e | | tablet | for Pain. | | | 17 | | | + + + +---------+------+------+-------+ | pantoprazole | Take 20 mg by mouth | | 0 | 08/13 | | Activ | | (PROTONIX) 20 mg | daily. D/C's over a | | | 12/02 | | e | | tablet | year ago. | | | 17 | | | + + + +---------+------+------+-------+ | Multiple | Take 1 tablet by | | 0 | 08/15 | | Activ | | Vitamins-Minerals | mouth daily. | | | | | e | | (MULTIVITAMIN WITH | | | | 17 | | | | MINERALS) tablet | | | | | | | + + + +---------+------+------+-------+ | raNITIdine | 150 mg as needed. | | 0 | 07/2 | | Activ | | (ZANTAC) 150 MG | | | | 1/20 | | e | | capsule | | | | 17 | | | + + + +---------+------+------+-------+ | latanoprost | | | 0 | 03/1 | | Activ | | (XALATAN) 0.005% | | | | 6/20 | | e | | ophthalmic solution | | | | 18 | | | + + + +---------+------+------+-------+ | allopurinol | Take 1 tablet by | 90 | 3 | 04/0 | | Activ | | (ZYLOPRIM) 100 mg | mouth daily. | tablet | | 3/20 | | e | | tablet | | | | 19 | | | + + + +---------+------+------+-------+ Active Problems + + + | Problem [...] | | + +------+ + + | Father | | | | + +------+ + + | Mother | | | | | | | (Age | | | | | 42) | | + +------+ + + | Mother | | | | + +------+ + + Social History + +-------+ +--------+------+ [...] recent travel history available. | + + Last Filed Vital Signs + + + + + | Vital Sign | Reading | Time Taken | Comments | + + + + + | Blood Pressure | 130/72 | 06/15/2018 9:44 AM | | | | | PDT | | + + + + + | Pulse | 73 | 06/15/2018 9:44 AM | | | | | PDT | | + + + + + | Temperature | 36.4 C (97.5 F) | 06/16/2017 10:03 AM | | | | | PDT | | + + + + + | Respiratory Rate | - | - | | + + + + + | Oxygen Saturation | - | - | | + + + + + | Inhaled Oxygen | - | - | | | Concentration | | | | + + + + + | Weight | 89.5 kg (197 lb 4.8 | 06/15/2018 9:44 AM | | | | oz) | PDT | | + + + + + | Height | 154.9 cm (5' 1") | 06/15/2018 9:44 AM | | | | | PDT | | + + + + + | Body Mass Index | 37.28 | 06/15/2018 9:44 AM | | | | | PDT | | + + + + + Plan of Treatment [...] | | | | | Pneumococcal 65+ (1 | 8 | | | | of 2 - PCV13) | | | | + + + + + | Adult Annual | | | | | Wellness Visit | 9 | | | + + + + + | Vaccine: Influenza | | | | | (#1) | 9 | | | + + + + + Results Not on filefrom Last 3 Months
--- OUTSIDE RECORDS SUMMARY | ~2019-01-28 | XMS | Encounter Summary ---
Demographics + + + | Address | [address] | | | [place] [address] | + + + | Home Phone | | + + + | Preferred Language | Unknown | + + + | Marital Status | | + + + | Scientologist Affiliation | 1069 | + + + | Race | Unknown | + + + | Ethnic Group | Unknown | + + + Author + + + | Author | [facility] | | | and [place] | + + + | Organization | [facility] | | | and [place] | + + + | Address | Unknown | + + + | Phone | Unavailable | + + + Support + + + + + | Name | Relationship | Address | Phone | + + + + + | Montse Jain | ECON | [address] | | | | | [place] | | | | | [address] | | + + + + + Care Team Providers + +------+ + | Care Accounting Teacher Name | Role | Phone | + +------+ + | Kwabena Dimas MD PCP | | + +------+ + Encounter Details +--------+ + + + + | Date | Type | Department | Care Team | Description | +--------+ + + + + | 12/21/ | Orders Only | [facility] | Conversion | | | 2016 | | NEPHROLOGY RENÉE | Transaction, | | | | | [address] | Provider Unknown | | | | | [address] [place] [address] | | | | | | [address] | (Fax) | | | | | [phone] | | | +--------+ + + + [...] | + +--------+ + + + | CULTURE, URINE | Routin | 12/21/2016 | | Results for this | | | e | 8:52 AM | | procedure are in the | | | | PDT | | results section. | + +--------+ + + + documented in this encounter Results Culture, Urine (12/21/2016 8:52 AM PDT) + + | Specimen | + + | Urine specimen | | (specimen) | + + + + + | Narrative | Performed At | + + + | Specimen Description Urine CULTURE | EXTERNAL LAB | | No Growth at 18-24 hrs. REPORT | | | STATUS Final | | + + + + +---------+ + + | Performing | Address | City/State/Zipcode | Phone Number | | Organization | | | | + +---------+ + + | EXTERNAL LAB | | | | + +---------+ + + documented in this encounter Visit Diagnoses Not on filedocumented in this encounter"
--- OUTSIDE RECORDS SUMMARY | ~2019-01-28 | XMS | Encounter Summary ---
Demographics + + + | Address | [address] | | | [place] [address] | + + + | Home Phone | | + + + | Preferred Language | Unknown | + + + | Marital Status | | + + + | Evangelical Affiliation | 1069 | + + + | Race | Unknown | + + + | Ethnic Group | Unknown | + + + Author + + + | Author | [facility] | | | and [place] | + + + | Organization | [facility] | | | and [place] | + + + | Address | Unknown | + + + | Phone | Unavailable | + + + Support + + + + + | Name | Relationship | Address | Phone | + + + + + | Montse Jain | ECON | [address] | | | | | [place] | | | | | [address] | | + + + + + Care Team Providers + +------+ + | Care Orthopedic Coder Name | Role | Phone | + +------+ + PCP | Unavailable | + +------+ + Encounter Details +--------+ + + + + | Date | Type | Department | Care Team | Description | +--------+ + + + + | 06/13/ | Orders Only | [facility] | Tato Urrutia, | | | 2018 | | NEPHROLOGY [facility] | IDENTITY ACCESS MANAGEMENT ARCHITECT [address] | | | | | [address] | [address] | | | | | [address] | [place] | | | | | [address] | [address] | | | | | [phone] | [phone] | | | | | | | [...] | EXTERNAL LAB: CBC | Routin | 06/13/2018 | | Results for this | | | e | 8:35 AM | | procedure are in the | | | | PDT | | results section. | + +--------+ + + + | PROTEIN/CREATININE | Routin | 06/13/2018 | | Results for this | | RATIO, URINE | e | 8:35 AM | | procedure are in the | | | | PDT | | results section. | + +--------+ + + + | MAGNESIUM | Routin | 06/13/2018 | | Results for this | | | e | 8:35 AM | | procedure are in the | | | | PDT | | results section. | + +--------+ + + + | RENAL FUNCTION PANEL | Routin | 06/13/2018 | | Results for this | | | e | 8:35 AM | | procedure are in the | | | | PDT | | results section. | + +--------+ + + + documented in this encounter Results Protein/Creatinine Ratio, Urine (06/13/2018 8:35 AM PDT) + +-------+ + + + | Component | Value | Ref Range | Performed | Pathologist | | | | | At | Signature | + +-------+ + + + | Protein/Cre | 101.5 | 0 - 150 | EXTERNAL | [...] + +---------+ + + External Lab: CBC (06/13/2018 8:35 AM PDT) + +-------+ + + + | Component | Value | Ref Range | Performed | Pathologist | | | | | At | Signature | + +-------+ + + + | WBC | 5.7 | 4.5 - 11.0 10 | EXTERNAL | | | | | | LAB | | + +-------+ + + + | RED CELL | 4.71 | 4.3 - 5.7 10 | EXTERNAL | | | COUNT | | | LAB | | + +-------+ + + + | Hgb | 14.8 | 13.5 - 18.0 | EXTERNAL | | | | | g/dL | LAB | | + +-------+ + + + | Hematocrit, | 42.6 | 41 - 50 % | EXTERNAL | | | POC | | | LAB | | + +-------+ + + + | MCV | 90.4 | 81 - 99 fL | EXTERNAL [...] +-------+ + + + | Platelet | 263 | 140 - 440 K/ L | EXTERNAL | | | Count | | | LAB | | | Plasma | | | | | + +-------+ + + + | RDW-CV | 13.8 | 10.5 - 15.0 % | EXTERNAL [...] + + + | % Segmented | 57.6 | 39 - 80 % | EXTERNAL | | | | | | LAB | | | Neutrophils | | | | | + +-------+ + + + | % | 28.2 | 24 - 44 % | EXTERNAL | | | Lymphocytes | | | LAB | | + +-------+ + + + | % Monocytes | 11.4 | 0 - 12 % | EXTERNAL | | | | | | LAB | | + +-------+ + + + | % | 2.2 | 0 - 6 % | EXTERNAL | | | Eosinophils | | | LAB | | + +-------+ + + + | % Basophils | 0.3 | 0 - 2 % | EXTERNAL | | | | [...] | | + +---------+ + + Magnesium (06/13/2018 8:35 AM PDT) + +-------+ + + + [...] + +---------+ + + Renal Function Panel (06/13/2018 8:35 AM PDT) + + + + + + | Component | Value | Ref Range | Performed | Pathologist | | | | | At | Signature | + + + + + + | Glucose, | 128 (A) | 70 - 100 mg/dL | EXTERNAL | | | Fasting | | | LAB | | + + + + + + | BUN | 23 | 6 - 23 mg/dL | EXTERNAL | | | | | | LAB | | + + + + + + | Creatinine | 1.14 (A) | 0.70 - 1.11 | EXTERNAL | | | | | mg/dL | LAB | | + + + + + + | PHOSPHORUS | 2.5 | 2.5 - 5.0 mg/dL | EXTERNAL | | | | | | LAB | | + + + + + + | Albumin | 4.1 | 3.5 - 5.0 | EXTERNAL | | | | | | LAB | | + + + + + + | Na | 142 | 132 - 143 | EXTERNAL | | | | | mmol/L | LAB | | + + + + + + | K | 3.9 | 3.6 - 5.1 | EXTERNAL | | | | | mmol/L | LAB | | + + + + + + | Cl | 106 | 95 - 112 mmol/L | EXTERNAL | | | | | | LAB | | + + + + + + | CO2 | 24 | 19 - 31 mmol/L | EXTERNAL | | | | | | LAB | | + + + + + + | Anion Gap | 15.9 | 7 - 21 mmol/L | EXTERNAL | | | | | | LAB | | + + + + + + | eGFR if not | | | EXTERNAL | | | | | | LAB | | | [place] | | | | | + + + + + + | Phosphorus, | | | EXTERNAL | | | Inorganic | | | LAB | | + + + + + + | BUN/Creatin | 20.2 | 6.0 - 28.6 | EXTERNAL | | | ine Ratio | | | LAB | | + + + + + + | Calcium | 9.2 | 8.5 - 10.3 | EXTERNAL | | | | | mg/dL | LAB | | + + + + + + | Estimated | 61 | 60 - 140 mg/dL | EXTERNAL | | | GFR [...]
--- OUTSIDE RECORDS SUMMARY | ~2019-01-28 | XMS | Clinical Summary ---
Demographics + + + | Address | [address] [facility] | | | [place] [address] | + + + | Home Phone | | + + + | Preferred Language | Unknown | + + + | Marital Status | | + + + | Cheondoism Affiliation | 1069 | + + + | Race | Unknown | + + + | Ethnic Group | Unknown | + + + Author + + + | Author | [facility] (Historical as of | | | 10-29-18) | + + + | Organization | [facility] (Historical as of | | | 10-29-18) | + + + | Address | Unknown | + + + | Phone | Unavailable | + + + Support + + + + + | Name | Relationship | Address | Phone | + + + + + | Montse Jain | ECON | [address] [facility] | | | | | [place] | | | | | [address] | | + + + + + Care Team Providers + +------+ + | Care Mail Processing Associate Name | Role | Phone | + [...] +--------+ +--------+ + + | [place] - [place] | [place] - | [phone] | Medica | [phone] [address] [address] [place] | | HEALTHCARE | UNITED | | re | [address] | [place] [address] | | | | | | | | | | HEALTH | | | | | | | CARE | | | | | + +--------+ +--------+ + + | MEDICARE | MEDICA | [id number] | | | [address] | | | RE | | | | [place] [phone] | | | IP-OP | | | [...] | Self | [birth year] | Home: | [address] | | | al/Fam | | [phone] | [phone] | [address] [place] | | | conrado | | | [phone] | [phone] | + +--------+ +--------+ + +
--- OUTSIDE RECORDS SUMMARY | ~2019-01-28 | XMS | Encounter Summary ---
Demographics + + + | Address | [address] [facility] [facility] [address] | | | [place] [address] | + + + | Home Phone | | + + + | Preferred Language | Unknown | + + + | Marital Status | | + + + | Cheondoism Affiliation | 1069 | + + + | Race | Unknown | + + + | Ethnic Group | Unknown | + + + Author + + + | Author | [facility] | | | and [place] | + + + | Organization | [facility] | | | and [place] | + + + | Address | Unknown | + + + | Phone | Unavailable | + + + Support + + + + + | Name | Relationship | Address | Phone | + + + + + | Montse Jain | ECON | [address] | | | | | [place] | | | | | [address] | | + + + + + Care Team Providers + +------+ + | Care Power Cleaner Operator Name | Role | Phone | + +------+ + | Kwabena Dimas MD PCP | | + +------+ + Encounter Details +--------+ + + + + | Date | Type | Department | Care Team | Description | +--------+ + + + + | 12/21/ | Orders Only | [facility] | Conversion | | | 2016 | | NEPHROLOGY [place] | Transaction, | | | | | [address] | Provider Unknown | | | | | [address] [place] | | | | | | [address] | (Fax) | | | | | [phone] | | | +--------+ + + + [...]
--- OUTSIDE RECORDS SUMMARY | ~2019-01-28 | XMS | Encounter Summary ---
Demographics + + + | Address | [address] | | | [place] [address] | + + + | Home Phone | | + + + | Preferred Language | Unknown | + + + | Marital Status | | + + + | Orthodox Affiliation | 1069 | + + + | Race | Unknown | + + + | Ethnic Group | Unknown | + + + Author + + + | Author | [facility] | | | and [place] | + + + | Organization | [facility] | | | and [place] | + + + | Address | Unknown | + + + | Phone | Unavailable | + + + Support + + + + + | Name | Relationship | Address | Phone | + + + + + | Montse Jain | ECON | [address] [facility] | | | | | [place] | | | | | [address] | | + + + + + Care Team Providers + +------+ + | Care Offal Worker Name | Role | Phone | + +------+ + | Kwabena Dimas MD PCP | | + +------+ + Encounter Details +--------+ + + + + | Date | Type | Department | Care Team | Description | +--------+ + + + + | 04/21/ | Orders Only | [facility] | Conversion | | | 2017 | | NEPHROLOGY [place] | Transaction, | | | | | [address] | Provider Unknown | | | | | [address] [place] | | | | | | [address] | (Fax) | | | | | [phone] | | | +--------+ + + + [...] - 1.030 | EXTERNAL | | | [place] | | | LAB | | + [...]
--- OUTSIDE RECORDS SUMMARY | ~2019-01-28 | XMS | Encounter Summary ---
Demographics + + + | Address | [address] [facility] | | | [place] [address] | + + + | Home Phone | | + + + | Preferred Language | Unknown | + + + | Marital Status | | + + + | Caodaism Affiliation | 1069 | + + + | Race | Unknown | + + + | Ethnic Group | Unknown | + + + Author + + + | Author | [facility] | | | and [place] | + + + | Organization | [facility] | | | and [place] | + + + | Address | Unknown | + + + | Phone | Unavailable | + + + Support + + + + + | Name | Relationship | Address | Phone | + + + + + | Montse Jain | ECON | [address] [facility] | | | | | [place] | | | | | [address] | | + + + + + Care Team Providers + +------+ + | Care Agricultural Technician Name | Role | Phone | + +------+ + | Kwabena Dimas MD PCP | | + +------+ + Encounter Details +--------+ + + + + | Date | Type | Department | Care Team | Description | +--------+ + + + + | 04/04/ | Orders Only | [facility] | Conversion | | | 2018 | | CONVERSION [address] | Transaction, | | | | | [address] | Provider Unknown | | | | | [facility] [place] [place] | [phone] | | | | | [phone] | (Fax) | | | | | [phone] | | | +--------+ + + + [...]
--- OUTSIDE RECORDS SUMMARY | ~2019-01-28 | XMS | Encounter Summary ---
Demographics + + + | Address | [address] | | | [place] [address] | + + + | Home Phone | | + + + | Preferred Language | Unknown | + + + | Marital Status | | + + + | Scientologist Affiliation | 1069 | + + + | Race | Unknown | + + + | Ethnic Group | Unknown | + + + Author + + + | Author | [facility] | | | and [place] | + + + | Organization | [facility] | | | and [place] | + + + | Address | Unknown | + + + | Phone | Unavailable | + + + Support + + + + + | Name | Relationship | Address | Phone | + + + + + | Montse Jain | ECON | [address] | | | | | [place] | | | | | [address] | | + + + + + Care Team Providers + +------+ + | Care Keg Filler Name | Role | Phone | + [...] Provider Unknown | | | | | [facility] [place] | [phone] | | | | | [phone] | (Fax) | | | | | [phone] | | | +--------+ + + + [...]
--- OUTSIDE RECORDS SUMMARY | ~2019-01-28 | XMS | Clinical Summary ---
Demographics + + + | Address | [address] [facility] | | | [place] [address] | + + + | Home Phone | | + + + | Preferred Language | Unknown | + + + | Marital Status | | + + + | Lutheran Affiliation | 1069 | + + + | Race | Unknown | + + + | Ethnic Group | Unknown | + + + Author + + + | Author | [facility] | | | and [place] | + + + | Organization | [facility] | | | and [place] | + + + | Address | Unknown | + + + | Phone | Unavailable | + + + Support + + + + + | Name | Relationship | Address | Phone | + + + + + | Montse Jain | ECON | [address] [facility] | | | | | [place] | | | | | [address] | | + + + + + Care Team Providers + +------+ + | Care Fire Support Man Name | Role | Phone | + [...]
--- OUTSIDE RECORDS SUMMARY | ~2019-01-28 | XMS | Encounter Summary ---
Demographics + + + | Address | [address] [facility] [facility] | | | [place] [address] | + + + | Home Phone | | + + + | Preferred Language | Unknown | + + + | Marital Status | | + + + | Caodaism Affiliation | 1069 | + + + | Race | Unknown | + + + | Ethnic Group | Unknown | + + + Author + + + | Author | [facility] | | | and [place] | + + + | Organization | [facility] | | | and [place] | + + + | Address | Unknown | + + + | Phone | Unavailable | + + + Support + + + + + | Name | Relationship | Address | Phone | + + + + + | Montse Jain | ECON | [address] | | | | | [place] | | | | | [address] | | + + + + + Care Team Providers + +------+ + | Care Employment Programs Analyst Name | Role | Phone | + +------+ + PCP | Unavailable | + +------+ + Encounter Details +--------+ + + + + | Date | Type | Department | Care Team | Description | +--------+ + + + + | 06/13/ | Orders Only | [facility] | Tato Urrutia, | | | 2018 | | NEPHROLOGY [place] | FEEDER SWITCHBOARD OPERATOR [address] | | | | | [address] | [address] | | | | | [address] [place] | [place] | | | | | [address] | [address] | | | | | [phone] | [phone] | | | | | | | [...] | | | LAB | | | [place] | | | | | + + [...]
--- OUTSIDE RECORDS SUMMARY | ~2019-01-28 | XMS | Encounter Summary ---
Demographics + + + | Address | [address] | | | [place] [address] | + + + | Home Phone | | + + + | Preferred Language | Unknown | + + + | Marital Status | | + + + | Confucianist Affiliation | 1069 | + + + | Race | Unknown | + + + | Ethnic Group | Unknown | + + + Author + + + | Author | [facility] | | | and [place] | + + + | Organization | [facility] | | | and [place] | + + + | Address | Unknown | + + + | Phone | Unavailable | + + + Support + + + + + | Name | Relationship | Address | Phone | + + + + + | Montse Jain | ECON | [address] | | | | | [place] | | | | | [address] | | + + + + + Care Team Providers + +------+ + | Care Plant Attendant Or Assistant Operator Name | Role | Phone | + +------+ + | Kwabena Dimas MD PCP | | + +------+ + Encounter Details +--------+ + + + + | Date | Type | Department | Care Team | Description | +--------+ + + + + | 05/04/ | Orders Only | [facility] | Conversion | | | 2016 | | NEPRHOLOGY RL | Transaction, | | | | | [address] | Provider Unknown | | | | | [address] [place], [place] | [phone] | | | | | [address] | (Fax) | | | | | [phone] | | | +--------+ + + + [...] | EXTERNAL LAB: CBC | Routin | 05/04/2016 | | Results for this | | | e | 9:03 AM | | procedure are in the | | | | PST | | results section. | + +--------+ + + + | VITAMIN D, | Routin | 05/04/2016 | | Results for this | | DEFICIENCY SCREEN | e | 9:03 AM | | procedure are in the | | (25-HYDROXY) | | PST | | results section. | + +--------+ + + + | COMPREHENSIVE | Routin | 05/04/2016 | | Results for this | | METABOLIC PANEL | e | 9:03 AM | | procedure are in the | | | | PST | | results section. | + +--------+ + + + documented in this encounter Results Vitamin D, Deficiency Screen (25-Hydroxy) (05/04/2016 9:03 AM PST) + +--------+ + + + | Component | Value | Ref Range | Performed | Pathologist | | | | | At | Signature | + +--------+ + + + | Vit D, | 16 (A) | 30 - 100 | EXTERNAL [...] + +---------+ + + External Lab: CBC (05/04/2016 9:03 AM PST) + +-------+ + + + | Component | Value | Ref Range | Performed | Pathologist | | | | | At | Signature | + +-------+ + + + | WBC | 5.5 | 4.5 - 11.0 10 | EXTERNAL | | | | | | LAB | | + +-------+ + + + | RED CELL | 4.84 | 4.3 - 5.7 10 | EXTERNAL | | | COUNT | | | LAB | | + +-------+ + + + | Hgb | 15.4 | 13.5 - 18.0 | EXTERNAL | | | | | g/dL | LAB | | + +-------+ + + + | Hematocrit, | 42.9 | 41 - 50 % | EXTERNAL | | | POC | | | LAB | | + +-------+ + + + | MCV | 88.6 | 81 - 99 fL | EXTERNAL | | | | | | LAB | | + +-------+ + + + | MCH | 32 | 27 - 33 pg | EXTERNAL | | | | | | LAB | | + +-------+ + + + | MCHC | 36 | 30 - 36 g/dL | EXTERNAL | | | | | | LAB | | + +-------+ + + + | Platelet | 245 | 140 - 440 K/ L | EXTERNAL | | | Count | | | LAB | | | Plasma | | | | | + +-------+ + + + | RDW-CV | 13.5 | 10.5 - 15.0 % | EXTERNAL [...] + +---------+ + + Comprehensive Metabolic Panel (05/04/2016 9:03 AM PST) + + + + + + | Component | Value | Ref Range | Performed | Pathologist | | | | | At | Signature | + + + + + + | Glucose, | 112 (A) | 70 - 100 mg/dL | EXTERNAL | | | Fasting | | | LAB | | + + + + + + | BUN | 16 | 6 - 23 mg/dL | EXTERNAL | | | | | | LAB | | + + + + + + | Creatinine | 1.15 (A) | 0.70 - 1.11 | EXTERNAL | | | | | mg/dL | LAB | | + + + + + + | BUN/Creatin | 13.9 | 6.0 - 28.6 | EXTERNAL | | | ine Ratio | | | LAB | | + + + + + + | Calcium | 9.8 | 8.4 - 10.2 | EXTERNAL | | | | | mg/dL | LAB | | + + + + + + | Protein, | 7.0 | 6.0 - 8.0 g/dL | EXTERNAL | | | Total | | | LAB | | + + + + + + | Albumin | 4.5 | 3.5 - 5.0 | EXTERNAL | | | | | | LAB | | + + + + + + | Globulin | 2.5 | 1.8 - 3.5 | EXTERNAL | | | | | | LAB | | + + + + + + | A/G Ratio | 1.8 | 1.1 - 2.4 | EXTERNAL | | | | | | LAB | | + + + + + + | Bilirubin | 0.7 | 0.0 - 1.2 mg/dL | EXTERNAL | | | Total | | | LAB | | + + + + + + | ALP, | 55 | 31 - 120 | EXTERNAL | | | External | | | LAB | | + + + + + + | ALT | 27 | 7 - 52 U/L | EXTERNAL | | | | | | LAB | | + + + + + + | AST | 21 | 13 - 39 U/L | EXTERNAL [...] + + + + | Cl | 105 | 95 - 112 mmol/L | EXTERNAL [...] + + | Estimated | 61 | mg/dL | EXTERNAL | | | [...]
--- OUTSIDE RECORDS SUMMARY | ~2019-01-28 | XMS | Encounter Summary ---
Demographics + + + | Address | [address] | | | [place] [address] | + + + | Home Phone | | + + + | Preferred Language | Unknown | + + + | Marital Status | | + + + | Jewish Affiliation | 1069 | + + + | Race | Unknown | + + + | Ethnic Group | Unknown | + + + Author + + + | Author | [facility] | | | and [place] | + + + | Organization | [facility] | | | and [place] | + + + | Address | Unknown | + + + | Phone | Unavailable | + + + Support + + + + + | Name | Relationship | Address | Phone | + + + + + | Montse Jain | ECON | [address] [facility] [facility] | | | | | [place] | | | | | [address] | | + + + + + Care Team Providers + +------+ + | Care Check Inspector Name | Role | Phone | + +------+ + | Kwabena Dimas MD PCP | | + +------+ + Encounter Details +--------+ + + + + | Date | Type | Department | Care Team | Description | +--------+ + + + + | 09/07/ | Orders Only | [facility] | Conversion | | | 2016 | | NEPHROLOGY [place] | Transaction, | | | | | [address] | Provider Unknown | | | | | [address] [place] | | | | | | [address] | (Fax) | | | | | [phone] | | | +--------+ + + + [...] - 1.030 | EXTERNAL | | | [place] | | | LAB | | + [...]
--- OUTSIDE RECORDS SUMMARY | ~2019-01-28 | XMS | Encounter Summary ---
Demographics + + + | Address | [address] | | | [place] [address] | + + + | Home Phone | | + + + | Preferred Language | Unknown | + + + | Marital Status | | + + + | Presybeterian Affiliation | 1069 | + + + | Race | Unknown | + + + | Ethnic Group | Unknown | + + + Author + + + | Author | [facility] | | | and [place] | + + + | Organization | [facility] | | | and [place] | + + + | Address | Unknown | + + + | Phone | Unavailable | + + + Support + + + + + | Name | Relationship | Address | Phone | + + + + + | Montse Jain | ECON | [address] | | | | | [place] | | | | | [address] | | + + + + + Care Team Providers + +------+ + | Care State Editor Name | Role | Phone | + [...] Provider Unknown | | | | | [facility] [place] | [phone] | | | | | [address] | (Fax) | | | | | [phone] | | | +--------+ + + + [...]
--- OUTSIDE RECORDS SUMMARY | ~2019-01-28 | XMS | Encounter Summary ---
Demographics + + + | Address | [address] | | | [place] [address] | + + + | Home Phone | | + + + | Preferred Language | Unknown | + + + | Marital Status | | + + + | Sabianism Affiliation | 1069 | + + + | Race | Unknown | + + + | Ethnic Group | Unknown | + + + Author + + + | Author | [facility] | | | and [place] | + + + | Organization | [facility] | | | and [place] | + + + | Address | Unknown | + + + | Phone | Unavailable | + + + Support + + + + + | Name | Relationship | Address | Phone | + + + + + | Montse Jain | ECON | [address] [facility] | | | | | [place] | | | | | [address] | | + + + + + Care Team Providers + +------+ + | Care Dope Sprayer Name | Role | Phone | + +------+ + | Kwabena Dimas MD PCP | | + +------+ + Encounter Details +--------+ + + + + | Date | Type | Department | Care Team | Description | +--------+ + + + + | 05/04/ | Orders Only | [facility] | Conversion | | | 2016 | | NEPRHOLOGY RL | Transaction, | | | | | [address] | Provider Unknown | | | | | [address] [place], [place] | [phone] | | | | | [address] | (Fax) | | | | | [phone] | | | +--------+ + + + [...]
--- OUTSIDE RECORDS SUMMARY | ~2019-01-28 | XMS | Encounter Summary ---
Demographics + + + | Address | [address] | | | [place] [address] | + + + | Home Phone | | + + + | Preferred Language | Unknown | + + + | Marital Status | | + + + | Pentecostalism Affiliation | 1069 | + + + | Race | Unknown | + + + | Ethnic Group | Unknown | + + + Author + + + | Author | [facility] | | | and [place] | + + + | Organization | [facility] | | | and [place] | + + + | Address | Unknown | + + + | Phone | Unavailable | + + + Support + + + + + | Name | Relationship | Address | Phone | + + + + + | Montse Jain | ECON | [address] [address] | | | | | [place] | | | | | [address] | | + + + + + Care Team Providers + +------+ + | Care Senior Accounting Associate Name | Role | Phone | + +------+ + | Kwabena Dimas MD | PCP | | + +------+ + Encounter Details +--------+ + + + + | Date | Type | Department | Care Team | Description | +--------+ + + + + | 12/21/ | Orders Only | [facility] | Maciej Oglesby MD | | | 2017 | | NEPHROLOGY [place] | [address] | | | | | [address] [place] | [address] [place], [place] | | | | | [address] [place], [place] | [address] | | | | | [address] | | | | | | [phone] | | | +--------+ + + + [...] | | | LAB | | | [place] | | | | | + +---------+ [...]
--- OUTSIDE RECORDS SUMMARY | ~2019-01-28 | XMS | Encounter Summary ---
Demographics + + + | Address | [address] | | | [place] [address] | + + + | Home Phone | | + + + | Preferred Language | Unknown | + + + | Marital Status | | + + + | Sikh Affiliation | 1069 | + + + | Race | Unknown | + + + | Ethnic Group | Unknown | + + + Author + + + | Author | [facility] | | | and [place] | + + + | Organization | [facility] | | | and [place] | + + + | Address | Unknown | + + + | Phone | Unavailable | + + + Support + + + + + | Name | Relationship | Address | Phone | + + + + + | Montse Jain | ECON | [address] | | | | | [place] | | | | | [address] | | + + + + + Care Team Providers + +------+ + | Care Orthotic Fitter Name | Role | Phone | + [...] Provider Unknown | | | | | [facility] [place] | [phone] | | | | | [address] | (Fax) | | | | | [phone] | | | +--------+ + + + [...]
--- OUTSIDE RECORDS SUMMARY | ~2019-01-28 | XMS | Encounter Summary ---
Demographics + + + | Address | [address] | | | [place] [address] | + + + | Home Phone | | + + + | Preferred Language | Unknown | + + + | Marital Status | | + + + | Protestant Affiliation | 1069 | + + + | Race | Unknown | + + + | Ethnic Group | Unknown | + + + Author + + + | Author | [facility] | | | and [place] | + + + | Organization | [facility] | | | and [place] | + + + | Address | Unknown | + + + | Phone | Unavailable | + + + Support + + + + + | Name | Relationship | Address | Phone | + + + + + | Montse Jain | ECON | [address] [facility] | | | | | [place] | | | | | [address] | | + + + + + Care Team Providers + +------+ + | Care Electrophysiology Tech Name | Role | Phone | + +------+ + | Kwabena Dimas MD PCP | | + +------+ + Encounter Details +--------+ + + + + | Date | Type | Department | Care Team | Description | +--------+ + + + + | 12/21/ | Orders Only | [facility] | Conversion | | | 2016 | | NEPHROLOGY [place] | Transaction, | | | | | [address] | Provider Unknown | | | | | [address] [place] | | | | | | [address] | (Fax) | | | | | [phone] | | | +--------+ + + + [...]
--- OUTSIDE RECORDS SUMMARY | ~2019-01-28 | XMS | Encounter Summary ---
Demographics + + + | Address | [address] | | | [place] [address] | + + + | Home Phone | | + + + | Preferred Language | Unknown | + + + | Marital Status | | + + + | Spiritism Affiliation | 1069 | + + + | Race | Unknown | + + + | Ethnic Group | Unknown | + + + Author + + + | Author | [facility] | | | and [place] | + + + | Organization | [facility] | | | and [place] | + + + | Address | Unknown | + + + | Phone | Unavailable | + + + Support + + + + + | Name | Relationship | Address | Phone | + + + + + | Montse Jain | ECON | [address] | | | | | [place] | | | | | [address] | | + + + + + Care Team Providers + +------+ + | Care Reproduction Production Manager Name | Role | Phone | [...] [address], | | | | | [place] | [place] [address] | | | | | [address] | [phone] | | | | | [phone] | | | +--------+ + + + [...] Performed At | + + + | [facility] [address] Ph: | | | Patient Name: PIETRO JAIN Date of : | | | 1930 Medical Record: [id number] Account: [id number] | | | Exam Date/Time: 08/05/2009 08:40 [...] - 11/06/2018 4:45 PM PDT | | [facility] | | [facility] [address] | | | | | | Patient Name: PIETRO JAIN | | Date of : 1930 | | Medical Record: [id number] | | Account: [id number] | | | | | | Exam [...]
[2019-01-28] MEDS ORDERED: PRILOSEC OTC20 MG PO (17:27)
[2019-01-28] MEDS ORDERED: BETIMOL5 M1 OPTH (17:28)
[2019-01-28] MEDS ORDERED: LATANOPROST2.5 ML OPTH (17:28)
== END 2019-01-28 19:38 | disposition home or self-care (01) ==
LOC: ED 17:10
DX: R19.7 Diarrhea, unspecified (principal); R42 Dizziness and giddiness; I10 Essential (primary) hypertension; Z87.891 Personal history of nicotine dependence; Z88.8 Allergy status to other drugs, medicaments and biological substances; Z79.899 Other long term (current) drug therapy
CPT/HCPCS: 80053; 85025; 96360; 99284-25; J7030